=== PATIENT | female | born 1945 | race Caucasian/White ===

== ENCOUNTER → 2020-08-14 09:52 | Outpatient (BNVA) | payer MEDICARE, SELFPAY | PROVIDERS: PCP Internal Medicine; Referring Provider Internal Medicine; Visit Provider Physician Assistant | DX: Z87.19 Personal history of other diseases of the digestive system (principal) | CPT/HCPCS: 99212 ==

== ENCOUNTER → 2020-11-29 13:45 | Outpatient (BNVA) | payer MEDICARE, SELFPAY | PROVIDERS: PCP Internal Medicine; Visit Provider Physician Assistant | DX: Z76.89 Persons encountering health services in other specified circumstances (principal) | CPT/HCPCS: Q3014 ==

== ENCOUNTER 2021-02-11 10:02 | Outpatient (REF) | payer MEDICARE, SELFPAY ==
[2021-02-11 13:07] LABS: MANUAL DIFF FLAG NO
[2021-02-11 13:21] LABS: Glucose Urine UA NEG (NEG); Leukocyte Esterase Urine NEG (NEG); Nitrite Urine NEG (NEG); Urine Blood NEG (NEG); Urine Ketones NEG (NEG); Urine Protein NEG (NEG-TRACE)
[2021-02-11 13:23] LABS: Appearance Urine CLEAR; Color Urine STRAW
[2021-02-11 13:23] LABS: Basophils Absolute Auto 0.1 X10*3/uL (0.0-0.2); Basophils Percent Auto 1.2 % (0-2); Eosinophils Absolute Auto 0.2 X10*3/uL (0.0-0.4); Eosinophils Percent Auto 2.8 % (0-4); Hematocrit 40.9 % (37-47); Imm Gran Abs Auto 0.02 X10*3/uL (0.00-0.03); Imm Gran Pct Auto 0.3 % (0.0-0.4); Lymphocytes Absolute Auto 2.4 X10*3/uL (1.2-4.9); Mean Corpuscular HGB Conc 31.8 g/dl (31.0-35.0); Mean Corpuscular Volume 94.2 fL (80-98); Mean Platelet Volume 9.6 fL (9.4-12.3); Monocytes Absolute Auto 0.7 X10*3/uL (0.1-1.2); Monocytes Percent Auto 10.7 % (2-11); Neutrophils Absolute Auto 3.3 X10*3/uL (2.0-8.3); Platelet Count 383 X10*3/uL (160-400); Red Blood Count 4.34 X10*6/uL (4.20-5.50); Red Cell Distribution Width 14.1 % (11.0-16.0); White Blood Count 6.7 X10*3/uL (4.8-10.8)
[2021-02-11 14:12] LABS: Alanine Aminotransferase 21 U/L (0-31); Albumin Level 4.3 g/dL (3.5-5.0); Alkaline Phosphatase 67 U/L (39-117); Anion Gap 12 (12-20); Aspartate Amino Transferase 19 U/L (5-31); Bilirubin Total 0.4 mg/dL (0.0-1.0); Blood Urea Nitrogen 20 mg/dL (9-16); Calcium 9.6 mg/dL (8.4-10.2); Carbon Dioxide 29 mmol/L (22-29); Chloride 103 mmol/L (96-108); Estimated Glomerular Filt Rate > 60; Glucose Random 79 mg/dL (60-115); Potassium 4.1 mmol/L (3.3-5.1); Sodium 140 mmol/L (135-145)
== END 2021-02-11 10:03 | disposition home or self-care (01) ==
LOC: HO.LAB 10:02
PROVIDERS: PCP Internal Medicine; Visit Provider Physician Assistant
DX: R10.9 Unspecified abdominal pain (principal); K63.5 Polyp of colon; R10.11 Right upper quadrant pain; R74.01 Elevation of levels of liver transaminase levels
CPT/HCPCS: 36415; 80053; 81003; 85025; Q3014

== ENCOUNTER 2021-02-18 07:50 | Outpatient (REF) | payer MEDICARE, SELFPAY ==
--- NOTE | ~2021-02-18 | CT_ITS ---
EXAMINATION: CT ABDOMEN AND PELVIS WITH CONTRAST CLINICAL INFORMATION: Abdominal pain COMPARISON: None TECHNIQUE: Multidetector volumetric images were obtained from the superior aspect of the liver through the pubic symphysis following administration 85 mL of Omnipaque 350 intravenous contrast. Sagittal and coronal reformatted images were obtained on the technologist's workstation. Oral contrast: Yes This CT examination was performed using dose optimization techniques as appropriate, variously including the following: *Automated exposure control *Adjustment of mA and/or kV according to patient size (this includes techniques or standardized protocols for targeted exams where dose is matched to indication/reason for exam; i.e. extremities or head) *Use of iterative reconstruction technique DLP: 511 mGy-cm FINDINGS: LUNG BASES: There is a small calcified 3 mm nodule in the left lower lobe axial image 8 series 3 probably representing a calcified granuloma. The lung bases are otherwise clear. LIVER, GALLBLADDER, AND BILIARY TREE: The liver is normal in size, shape, and attenuation. No focal hepatic lesion or biliary ductal dilatation is present. The gallbladder is unremarkable with no evidence of radiopaque gallstones, gallbladder wall thickening, or obvious pericholecystic inflammatory changes. PANCREAS: Unremarkable. SPLEEN: Unremarkable. ADRENAL GLANDS: Unremarkable. KIDNEYS AND URETERS: The kidneys are normal in size, shape, and attenuation. There is question of mild extrarenal pelvises versus UPJ obstructions. There also appear to be bilateral peripelvic cysts. BLADDER: Unremarkable. GASTROINTESTINAL TRACT: There is diverticulosis of the colon. No evidence of diverticulitis is seen. The appendix is not identified with certainty. There are mild inflammatory changes in the fat extending from the distal small bowel toward the right inguinal region for example axial image [id number] series 3 and coronal reconstructed image 33. This measures 1.4 x 2.2 cm in transverse and longitudinal dimension. ABDOMINAL WALL: There is a small umbilical hernia containing fat. There is a small left inguinal hernia containing fat. LYMPH NODES: Normal. VASCULAR: There is evidence of atherosclerotic disease. PELVIC VISCERA: There is a small 1 cm right ovarian cyst. Uterus and left adnexa are unremarkable. OSSEOUS STRUCTURES: There are degenerative changes of the spine and scoliosis. CT/CT abdomen pelvis w con IMPRESSION: Diverticulosis. No evidence of diverticulitis. Appendix not identified with certainty. Small area of some inflammatory change in the fat in the right lower quadrant extending from the distal small bowel to the high right inguinal region of uncertain significance. Clinical correlation recommended. Mild bilateral hydronephrosis and probable bilateral peripelvic cysts. Small 1 cm right ovarian cyst. Question bilateral renal extrarenal pelvises versus UPJ obstructions and probable bilateral peripelvic cysts.
[2021-02-18] MEDS: iohexoL 350 MG/ML 100 ML INFUS..BTL IV (08:50)
== END 2021-02-18 07:51 | disposition home or self-care (01) ==
LOC: HO.CT 07:50
PROVIDERS: PCP Internal Medicine; Visit Provider Physician Assistant
DX: R10.9 Unspecified abdominal pain (principal)
CPT/HCPCS: 74177; Q9967

== ENCOUNTER → 2021-02-20 08:49 | Outpatient (BNVA) | payer MEDICARE, SELFPAY | PROVIDERS: PCP Internal Medicine; Visit Provider Physician Assistant | CPT/HCPCS: Q3014 ==

== ENCOUNTER 2021-03-26 09:48 | Day surgery (SDC) | payer MEDICARE, SELFPAY ==
[2021-03-21 15:59] VITALS: BMI 31.2
--- NOTE | 2021-03-22 12:29 | P.CONAN_ITS ---
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 - resolved per pt, off O2 RI 10/2019 with LATOSHA - plavix d/c'd 11/2020, stable for yearly cardiac f/u PMFSH Active Problems Active Problems: All Active Problems (Updated 03/22/21 @ 10:21 by Sharita Mendosa) Abdominal pain (Acute) Colon polyps (Acute) Past Medical History Medical History Asthma Colon polyps Coronary arteriosclerosis COVID-19 COVID-19 vaccine series completed H/O heartburn History of pneumonia HTN (hypertension) Hx of breast cancer Hx of myocardial infarction SOB (shortness of breath) on exertion Surgical History Surgical History H/O colonoscopy H/O heart artery stent History of surgery on left wrist Social History Social History Household Members: Spouse Household Members Other:: lives with - Alcohol intake: current Alcohol intake frequency: does not drink Patient Tobacco Use Status: Former Tobacco user Quit Date: 2003 Use of substances other than those prescribed or required for medical reasons: No Are you DNR?: No Advance Directives: No Advance Directives Information Provided: No Advance Directives on File: No Current occupational status: retired Meds Allergies Allergy/AdvReac Type Severity Reaction Status Date / Time No Known Allergies Allergy Verified 03/26/21 10:29 Home Medications Medication Instructions Recorded Confirmed Last Taken Type aspirin 81 mg tablet,delayed 81 mg PO DAILY 08/14/20 03/21/21 03/25/21 08:00 History release olmesartan 40 1 tab PO DAILY 08/14/20 03/21/21 Unknown History mg-hydrochlorothiazide 25 mg tablet carvedilol 3.125 mg tablet 3.125 mg PO BID 11/29/20 03/21/21 03/26/21 06:00 History montelukast 10 mg tablet 10 mg PO BEDTIME 11/29/20 03/21/21 Unknown History rosuvastatin 10 mg tablet 10 mg PO DAILY 11/29/20 03/21/21 Unknown History fluticasone propion-salmeterol 1 puff PO BID 03/21/21 03/21/21 Unknown History [Nikolas Matiasub] Exam Exam Date and Time: March 22, 2021 1229 Height,Weight and Vital Signs: Height 5 ft Weight 72.575 kg Pertinent Lab Results Pertinent Lab Results: Laboratory Tests 02/11/21 02/11/21 12:16 12:16 WBC 6.7 Hgb 13.0 Hct 40.9 Plt Count 383 Sodium 140 Potassium 4.1 Chloride 103 Carbon Dioxide 29 BUN 20 H Creatinine 0.76 Narrative Narrative: ECHO 05/2020 1. LV size is normal 2. LV wall thickness is normal 3. Overall LV systolic function is low normal with EF 50-55% 4. Grade 1 DD with impaired relax. LA pressure is normal 5. No WMA 6. LA is mildly dilated 7. Aortic sclerosis 8. Mild MR 9. No prior Echo for comparison Assessment and Plan Assessment Anesthesia Assessment: Chart Reviewed Documented by User: Teressa Todd 03/26/21 12:12 [facility] Past Medical History Medical History Asthma Colon polyps Coronary arteriosclerosis COVID-19 COVID-19 vaccine series completed H/O heartburn History of pneumonia HTN (hypertension) Hx of breast cancer Hx of myocardial infarction SOB (shortness of breath) on exertion Surgical History Surgical History H/O colonoscopy H/O heart artery stent History of surgery on left wrist Social History Social History Household Members: Spouse Household Members Other:: lives with - Alcohol intake: current Alcohol intake frequency: does not drink Patient Tobacco Use Status: Former Tobacco user Quit Date: 2003 Use of substances other than those prescribed or required for medical reasons: No Are you DNR?: No Advance Directives: No Advance Directives Information Provided: No Advance Directives on File: No Current occupational status: retired [employer] Allergies Allergy/AdvReac Type Severity Reaction Status Date / Time No Known Allergies Allergy Verified 03/26/21 10:29 Home Medications Medication Instructions Recorded Confirmed Last Taken Type aspirin 81 mg tablet,delayed 81 mg PO DAILY 08/14/20 03/21/21 03/25/21 08:00 History release olmesartan 40 1 tab PO DAILY 08/14/20 03/21/21 Unknown History mg-hydrochlorothiazide 25 mg tablet carvedilol 3.125 mg tablet 3.125 mg PO BID 11/29/20 03/21/21 03/26/21 06:00 History montelukast 10 mg tablet 10 mg PO BEDTIME 11/29/20 03/21/21 Unknown History rosuvastatin 10 mg tablet 10 mg PO DAILY 11/29/20 03/21/21 Unknown History fluticasone propion-salmeterol 1 puff PO BID 03/21/21 03/21/21 Unknown History [Wixela Inhub] Exam Airway Mallampati Class: II TM Dist: >3cm Neck ROM: Full
[2021-03-26 10:31] VITALS: BP 150/65; PULSE 62; RESP 20; TEMP 36.1; O2SAT 94
[2021-03-26] MEDS: Lactated Ringers 1,000 ML 100 ML IVCONT (10:44)
--- NOTE | 2021-03-26 11:02 | P.OP_ITS ---
Operative Note Operative Note Date of Service: 03/26/21 Narrative: Pre-op diagnosis: Colon cancer screening history of colon polyps, abdominal pain Post-op diagnosis: other (Colon polyps, diverticulosis, hemorrhoids) Procedure: COLONOSCOPY TILL CECUM WITH SNARE POLYPECTOMY, SUBMUCOSAL INJECTION, QIAN INK INJECTION AND HEMOCLIP PLACEMENT Consent: Indications for the procedure and potential complications of bleeding, perforation, reaction to medications and missed diagnosis were discussed with the patient and informed consent was obtained. Instrument: Olympus PCF H 190 L variable stiffness pediatric colonoscope Monitoring: Vital signs and clinical assessment, intermittent blood pressure monitoring, continuous EKG monitoring, Pulse oximetry and Carbon Dioxide monitoring were done throughout the procedure. Colon withdrawl time was 35 minutes. Procedure: The patient was placed in the left lateral decubitis position and pre-procedure medications were administered. After a digital rectal examination of the ano-rectum, the video colonoscope was inserted into the rectum and advanced through the colon to the cecum. The colonoscope was slowly withdrawn in a retrograde panoramic fashion and the colon mucosa was carefully examined including a retroflexed view of the rectum. Findings and interventions are described below. Procedure Difficulty: Without difficulty Findings: Terminal Ileum: Not evaluated Cecum: A subcentimeter flat polyp raised with 3 cc of for Orise solution and removed with a hot snare. Polypectomy site was closed with the hemoclip Ascending Colon: A 12-15 mm sessile polyp removed with a hot snare Transverse Colon: A 1.5 to 2 cms flat polyp removed piece meal with the stiff snare and polypectomy site marked by Qian ink. Moderate diverticulosis Descending Colon: Moderate diverticulosis Sigmoid Colon: Two 10-15 mm last polyps removed with a hot snare. Moderate diverticulosis Rectum: Normal Ano-rectum: Small internal hemorrhoids Colon preparation: Good Impression and Post Procedure Diagnosis: Colonoscopy Findings: Five medium to large sized polyps removed Moderate diverticulosis seen in the left and transverse colon Small hemorrhoids on retroflexed exam. Plan: Await pathology results Patient has an appointment on []in the GI Clinic with [ABDULAZIZ Medrano] [Cristal Rubio NP] [Maci Guerrero, CHAD-DELL] [Leni Castro M.D.]. Repeat Colonoscopy interval based on path results - in 3-5 years if polyps are adenomatous and 10 years if polyps are hyperplastic. Above findings were reviewed with the patient and [colon polyps] and [diverticulosis] handouts were given in the discharge area Surgeon: Leni Castro MD Anesthesia: MAC (Dr Todd) Was an [employer] used for this Procedure?: Yes [employer]: Bean Sanabria Estimated blood loss (mL): 0 Pathology: other (A- CECAL POLYP O-RISE USED. B- ASCENDING COLON POLYP C- POLYP AT 60CM D- SIGMOID POLYPS) Condition: stable Disposition: PACU
--- NOTE | 2021-03-26 11:02 | MHC.SHP ---
Pre-Procedural Eval Section A The patient is an INPATIENT: No The History & Physical has been completed within 30 days and I have reviewed it.: No Section B Chief Complaint: Colon Polyps Details of Present Illness: Colon cancer screening, history of colon polyps, lower abdominal pain Relevant Social History: None Present Medications: see Short Stay Collaborative assessment Medical History: Significant History (Colon polyps COVID-19 Heart attack) History of Previous Operations: Relevant previous surgery/procedure and date(s) (History of colonoscopy) Allergies: Allergies Allergy/AdvReac Type Severity Reaction Status Date / Time No Known Allergies Allergy Verified 03/26/21 10:29 Review of Systems Sugical H&P ROS: Negative: Constitution, Cardiovascular and Respiratory and Yes, Specify: Gastrointestinal (lower abd pain, constipation) Exam Surgical H&P Exam: Normal: Heart, Normal: Lungs, Normal: Extremities and Normal: Abdomen Plan Diagnosis/Plan: Unchanged I have reviewed the history and physical and performed a pertinent physical examination on my patient. No changes have occurred unless specified.
[2021-03-26 12:55] VITALS: BP 114/49; PULSE 54; RESP 16; TEMP 37; O2SAT 96
[2021-03-26 13:10] VITALS: BP 167/50; PULSE 53; RESP 17; TEMP 37; O2SAT 97
== END 2021-03-26 13:38 | disposition home or self-care (01) ==
PROVIDERS: PCP Internal Medicine; Visit Provider Internal Medicine Gastroenterology
PROC: 0DJD8ZZ Inspection of Lower Intestinal Tract, Via Natural or Artificial Opening Endoscopic (ICD-10-PCS; CPT 45378; principal; 2021-03-26 11:00)
DX: Z12.11 Encounter for screening for malignant neoplasm of colon (principal); Z86.010 Personal history of colon polyps; D12.0 Benign neoplasm of cecum; D12.2 Benign neoplasm of ascending colon; D12.4 Benign neoplasm of descending colon; K63.5 Polyp of colon; K57.30 Diverticulosis of large intestine without perforation or abscess without bleeding; K64.8 Other hemorrhoids; I10 Essential (primary) hypertension; I25.2 Old myocardial infarction; J45.909 Unspecified asthma, uncomplicated; Z85.3 Personal history of malignant neoplasm of breast; Z86.16 Personal history of COVID-19; Z87.01 Personal history of pneumonia (recurrent)
CPT/HCPCS: 45385; 45381; 88305

== ENCOUNTER → 2021-04-09 09:17 | Outpatient (BNVA) | payer MEDICARE, SELFPAY | PROVIDERS: PCP Internal Medicine; Visit Provider Physician Assistant | DX: K63.5 Polyp of colon (principal); R10.32 Left lower quadrant pain; I10 Essential (primary) hypertension; Z87.891 Personal history of nicotine dependence | CPT/HCPCS: 99212 ==

== ENCOUNTER 2021-04-18 11:53 | Emergency (ER) | payer MEDICARE, SELFPAY ==
--- NOTE | ~2021-04-18 | CT_ITS ---
EXAMINATION: CT ABDOMEN AND PELVIS WITH CONTRAST CLINICAL INFORMATION: Right lower quadrant pain. Assess for appendicitis. COMPARISON: CT abdomen and pelvis with contrast 02/18/2021. TECHNIQUE: Multidetector volumetric images were obtained from the superior aspect of the liver through the pubic symphysis following administration 85 mL of Omnipaque 350 intravenous contrast. Sagittal and coronal reformatted images were obtained on the technologist's workstation. Oral contrast: No This CT examination was performed using dose optimization techniques as appropriate, variously including the following: *Automated exposure control *Adjustment of mA and/or kV according to patient size (this includes techniques or standardized protocols for targeted exams where dose is matched to indication/reason for exam; i.e. extremities or head) *Use of iterative reconstruction technique DLP: 733 mGy-cm FINDINGS: LUNG BASES: The visualized lung bases are unremarkable. LIVER, GALLBLADDER, AND BILIARY TREE: The liver is normal in size, shape, and attenuation. No focal hepatic lesion or biliary ductal dilatation is present. The gallbladder is unremarkable with no evidence of radiopaque gallstones, gallbladder wall thickening, or obvious pericholecystic inflammatory changes. PANCREAS: Unremarkable. SPLEEN: Unremarkable. ADRENAL GLANDS: Unremarkable. KIDNEYS AND URETERS: The kidneys are normal in size and smooth in contour and enhance symmetrically. There are no visible urinary tract calculi. Again, there is bilateral fullness renal collecting systems with prominent extrarenal pelves. There may be some small parapelvic cysts. There is no hydroureter or obstructing mass. Appearance is stable from prior CT 02/18/2021. BLADDER: Distended urinary bladder. No focal wall thickening, diverticulum, or bladder calculus. GASTROINTESTINAL TRACT: There is no bowel obstruction or inflammatory changes seen in the bowel or mesentery. The appendix is normal. There is no ascites or fluid collection. No pneumatosis or free air. ABDOMINAL WALL: Small fat-containing umbilical hernia under 2 cm. Small fat-containing inguinal hernias, greater on left, 2.7 cm. LYMPH NODES: No lymphadenopathy. VASCULAR: Atherosclerotic calcifications. No abdominal aortic enlargement. PELVIC VISCERA: Stable 1.2 cm cyst right ovary. No pelvic ascites. OSSEOUS STRUCTURES: Degenerative changes lower thoracic and mid to lower lumbar spine. No acute bony abnormality. CT/CT abdomen pelvis w con IMPRESSION: 1. No inflammatory changes in bowel or mesentery. Normal appendix. 2. Fullness bilateral renal collecting system and extrarenal pelvis, stable from prior CT 02/18/2021. No urinary tract calculi or perinephric stranding. Finding could related to distended bladder as well as mild bilateral chronic UPJ obstruction. KUB at this time may be considered to allow for assessment of excretion of CT intravenous contrast. 3. Small stable fat-containing umbilical and fat-containing inguinal hernias.
--- NOTE | ~2021-04-18 | XR_ITS ---
EXAMINATION: XR ABDOMEN KUB CLINICAL INDICATION: Abnormal CT with bilateral renal collecting system fullness COMPARISON: CT of same day TECHNIQUE: AP view of the abdomen. FINDINGS: No dilated loops of large or small bowel are evident. There is multilevel degenerative disc disease seen within the lumbar spine. Hip joint spaces maintained. No acute fracture or diastases the pelvis. Sacroiliac joints unremarkable. Contrast is noted within the urinary bladder and renal collecting systems. No definite hydronephrosis identified. No columnization of the ureters is seen. Psoas margins are intact. XR/XR KUB IMPRESSION: No specific findings to suggest obstructive uropathy.
[2021-04-18 12:00] VITALS: BP 159/88; PULSE 70; RESP 16; TEMP 35.9; O2SAT 98; BMI 31.2
--- NOTE | 2021-04-18 12:25 | ED_ITS ---
HPI - Abdominal Pain General Chief Complaint: Abdominal Pain Stated Complaint: Possible hernia on right side Time Seen by Provider: 04/18/21 12:12 Source: patient Mode of arrival: ambulatory Limitations: no limitations History of Present Illness HPI narrative: 75 yo female asthma, gerd, HTN, breast cancer s/p left l umpectomy, OK, colon polyps here with complaints acute on chronic right sided abdominal x several hours. patient tells me she has a history of right lower abdominal pain for more than 1 year has been seen by several different specialists. They have been unable to determine the cause of her pain. She had a recent colonoscopy on March 26 which showed several adenomas but otherwise unremarkable. She had a CT scan February 18 which was unremarkable. She has intermittent episodes of pain which can last several minutes to up to 6 hours. They are not associated with any nausea, vomiting, diarrhea, fevers, chills, urinary symptoms. Today she was walking and lifted object and felt pain in her right lower abdomen and has had persistent pain since then. No radiation of pain. Last BM this morning and normal. Related Data Home Medications Medication Instructions Recorded Confirmed aspirin 81 mg tablet,delayed 81 mg PO DAILY 08/14/20 03/21/21 release olmesartan 40 1 tab PO DAILY 08/14/20 03/21/21 mg-hydrochlorothiazide 25 mg tablet carvedilol 3.125 mg tablet 3.125 mg PO BID 11/29/20 03/21/21 montelukast 10 mg tablet 10 mg PO BEDTIME 11/29/20 03/21/21 rosuvastatin 10 mg tablet 10 mg PO DAILY 11/29/20 03/21/21 fluticasone propion-salmeterol 1 puff PO BID 03/21/21 03/21/21 [Nikolas Cordova] Previous Rx's Medication Instructions Recorded methylcellulose (laxative) 500 mg 500 mg PO BID #60 tab 04/09/21 tablet Allergies Allergy/AdvReac Type Severity Reaction Status Date / Time No Known Allergies Allergy Verified 04/18/21 12:00 Review of Systems Review of Systems Yes all other systems are reviewed and are negative Constitutional: Reports no additional constitutional complaints, Denies body ache(s), Denies chills, Denies fever(s), Denies headache(s) and Denies weakness Eyes: Reports no additional eye complaints and Denies change in vision Reports system reviewed and no additional complaints, except as documented, Denies dizziness, Denies headache(s), Denies nasal congestion, Denies nasal discharge and Denies neck pain Cardiovascular: Reports no additional cardiovascular complaints, Denies chest pain, Denies leg edema and Denies dyspnea Respiratory: Reports no additional respiratory complaints, Denies cough and Denies dyspnea Gastrointestinal: Reports no additional gastrointestinal complaints, Reports abdominal pain, Denies diarrhea, Denies nausea and Denies vomiting Genitourinary: Reports no additional female genitourinary complaints and Denies urinary incontinence Musculoskeletal: Reports no additional musculoskeletal complaints, Denies back pain, Denies arthralgias, Denies joint swelling, Denies neck pain, Denies numbness and Denies tingling Skin/Breast: Reports system reviewed and no additional complaints, except as docu and Denies rash Reports system reviewed and no additional complaints, except as documented, Denies Abnormal speech present, Denies dizziness, Denies headache(s), Denies numbness, Denies tingling and Denies weakness Physical Exam Vital Signs: Vital Signs: Last Vital Signs Temp 98.4 F 04/18/21 16:00 Pulse 52 04/18/21 16:00 Resp 16 04/18/21 16:00 BP 157/58 H 04/18/21 16:00 Pulse Ox 97 04/18/21 16:00 Body Mass Index 31.2 Const: General: cooperative, healthy appearing, comfortable and no acute distress Orientation/consciousness: patient oriented x3 Limitations: no limitations HENMT: Head: Yes normal to inspection Ears: hearing grossly normal bilaterally General nose exam: Normal external nose present Face and sinus: Yes normal facial exam Mouth: Normal oral and palatal mucosa present Throat: Yes posterior oropharynx normal Eyes: General: appearance normal, both eyes and all related structures Pupils: Equal, round and reactive pupils present Neck: Neck: Yes normal visual inspection Chest: Chest palpation & inspection: normal inspection of the chest Resp: Effort & Inspection: normal respiratory effort Auscultation: clear to auscultation bilaterally Cardio: Rate: regular rate Rhythm: regular rhythm Peripheral pulses: Peripheral pulses 2+ throughout GI: Inspection: Yes normal to inspection Palpation (GI): Soft to palpation, Tenderness to palpation present (GI) (RLQ) with rebound tenderness and Guarding due to palpation present (GI) Auscultation: normal bowel sounds Back/Spine/Pelvis: Thoracic/Lumbar Spine: thoracic and lumbar spine normal to inspection Skin: General skin exam: no rashes or lesions noted Neuro: General: patient oriented x3, no focal motor deficits and normal sensation to monofilament Cranial nerves: Yes Equal, round and reactive pupils present Cognition (Neuro): normal cognition Speech: No Abnormal speech present Gait exam (Neuro): Normal gait present Motor exam (neuro): 5/5 motor strength present throughout Extrem: General: Yes normal to inspection, Yes no pedal edema and Yes no calf tenderness Course Course Course Narrative: 75 yo female here with acute on chronic right lower abdominal pain x 1 hr with no other associated symptoms. On exam mod tenderness with rebound/guarding. Will check labs, UA, CT A/P, provide analgesia. 1445- labs unremarkable. Urine is still pending. CT shows fullness the bilateral renal collecting system an extrarenal pelvis. Stable from prior CT 02/18/2021. No UTI or perinephric stranding. Could be related to distended bladder as well as mild bilateral chronic UPJ obstruction. Will check KUB. 1715- KUB not consistent with obstructive uropathy. Patient is feeling improved and so we will discharge her home and have her follow-up with her s pecialist as well as Urology. She was provided with a copy of the report. Reviewed worrisome signs and symptoms of when to return to the emergency department. Comfortable discharge home. 1730- I did discuss the patient with Dr. Puri and he agrees with urology follow-up. MDM - Abdominal Pain Differential Diagnosis Differential diagnosis: Likely acute appendicitis, bowel perforation, diverticulitis and gastroenteritis Medical Records Attestation: I reviewed the patient's medical records. Lab Data Attestation: I reviewed the patient's lab results. Result diagrams: 04/18/21 12:37 04/18/21 12:37 Labs: Lab Results 04/18/21 04/18/21 04/18/21 Range/Units 12:37 12:37 12:37 WBC 7.1 (4.8-10.8) X10*3/uL RBC 4.28 (4.20-5.50) X10*6/uL Hgb 13.0 (12.0-16.0) g/dl Hct 39.6 (37-47) % MCV 92.5 (80-98) fL MCH 30.4 (27.0-33.0) pg MCHC 32.8 (31.0-35.0) g/dl RDW 13.2 (11.0-16.0) % Plt Count 354 (160-400) X10*3/uL MPV 9.5 (9.4-12.3) fL Immature Gran % (Auto) 0.3 (0.0-0.4) % Neut % (Auto) 47.5 (45-73) % Lymph % (Auto) 36.6 (20-40) % [place] % (Auto) 11.5 H (2-11) % Eos % (Auto) 3.3 (0-4) % Baso % (Auto) 0.8 (0-2) % Lymph # (Auto) 2.6 (1.2-4.9) X10*3/uL [place] # (Auto) 0.8 (0.1-1.2) X10*3/uL Eos # (Auto) 0.2 (0.0-0.4) X10*3/uL Baso # (Auto) 0.1 (0.0-0.2) X10*3/uL Abs Immat Gran (auto) 0.02 (0.00-0.03) X10*3/uL Absolute Neuts (auto) 3.4 (2.0-8.3) X10*3/uL Absolute Nucleated RBC 0.000 (0.0-0.012) X10*3/uL Nucleated RBC % (auto) 0.0 (0.0-0.2) /100WBC Sodium 140 (135-145) mmol/L Potassium 3.9 (3.3-5.1) mmol/L Chloride 103 (96-108) mmol/L Carbon Dioxide 28 (22-29) mmol/L Anion Gap 13 (12-20) BUN 23 H (9-16) mg/dL Creatinine 0.79 (0.5-1.4) mg/dL Estim Creat Clear Calc 55.5 Estimated GFR > 60 Random Glucose 90 (60-115) mg/dL Lactic Acid 0.7 (0.5-2.0) mmol/L Calcium 9.7 (8.4-10.2) mg/dL Total Bilirubin 0.5 (0.0-1.0) mg/dL Direct Bilirubin 0.2 (0.0-0.5) mg/dL AST 20 (5-31) U/L ALT 19 (0-31) U/L Alkaline Phosphatase 65 (39-117) U/L Total Protein 7.2 (6.5-8.0) g/dL Albumin 4.2 (3.5-5.0) g/dL Urine Color Urine Appearance Urine pH (5.0-8.0) Ur Specific [place] (1.005-1.025) Urine Protein (NEG-TRACE) MG/DL Urine Glucose (UA) (NEG) MG/DL Urine Ketones (NEG) MG/DL Urine Blood (NEG) Urine Nitrite (NEG) Ur Leukocyte Esterase (NEG) Urine RBC (0) /HPF Urine WBC (0-4) /HPF Ur Squamous Epith Cells /LPF Urine Bacteria /LPF 04/18/21 Range/Units 15:10 WBC (4.8-10.8) X10*3/uL RBC (4.20-5.50) X10*6/uL Hgb (12.0-16.0) g/dl Hct (37-47) % MCV (80-98) fL MCH (27.0-33.0) pg MCHC (31.0-35.0) g/dl RDW (11.0-16.0) % Plt Count (160-400) X10*3/uL MPV (9.4-12.3) fL Immature Gran % (Auto) (0.0-0.4) % Neut % (Auto) (45-73) % Lymph % (Auto) (20-40) % [place] % (Auto) (2-11) % Eos % (Auto) (0-4) % Baso % (Auto) (0-2) % Lymph # (Auto) (1.2-4.9) X10*3/uL [place] # (Auto) (0.1-1.2) X10*3/uL Eos # (Auto) (0.0-0.4) X10*3/uL Baso # (Auto) (0.0-0.2) X10*3/uL Abs Immat Gran (auto) (0.00-0.03) X10*3/uL Absolute Neuts (auto) (2.0-8.3) X10*3/uL Absolute Nucleated RBC (0.0-0.012) X10*3/uL Nucleated RBC % (auto) (0.0-0.2) /100WBC Sodium (135-145) mmol/L Potassium (3.3-5.1) mmol/L Chloride (96-108) mmol/L Carbon Dioxide (22-29) mmol/L Anion Gap (12-20) BUN (9-16) mg/dL Creatinine (0.5-1.4) mg/dL Estim Creat Clear Calc Estimated GFR Random Glucose (60-115) mg/dL Lactic Acid (0.5-2.0) mmol/L Calcium (8.4-10.2) mg/dL Total Bilirubin (0.0-1.0) mg/dL Direct Bilirubin (0.0-0.5) mg/dL AST (5-31) U/L ALT (0-31) U/L Alkaline Phosphatase (39-117) U/L Total Protein (6.5-8.0) g/dL Albumin (3.5-5.0) g/dL Urine Color YELLOW Urine Appearance CLEAR Urine pH 5.5 (5.0-8.0) Ur Specific [place] <= 1.005 (1.005-1.025) Urine Protein NEG (NEG-TRACE) MG/DL Urine Glucose (UA) NEG (NEG) MG/DL Urine Ketones NEG (NEG) MG/DL Urine Blood TRACE (NEG) Urine Nitrite NEG (NEG) Ur Leukocyte Esterase NEG (NEG) Urine RBC 1-4 (0) /HPF Urine WBC 1-4 (0-4) /HPF Ur Squamous Epith Cells TRACE /LPF Urine Bacteria NONE /LPF Imaging Data CT scan - abdomen: Attestation: I personally reviewed and interpreted this imaging study as follows: Radiologist's impression: IMPRESSION: 1. No inflammatory changes in bowel or mesentery. Normal appendix. 2. Fullness bilateral renal collecting system and extrarenal pelvis, stable from prior CT 02/18/2021. No urinary tract calculi or perinephric stranding. Finding could related to distended bladder as well as mild bilateral chronic UPJ obstruction. KUB at this time may be considered to allow for assessment of excretion of CT intravenous contrast. 3. Small stable fat-containing umbilical and fat-containing inguinal hernias. kub xray: Attestation: I personally reviewed and interpreted this imaging study as follows: Radiologist's impression: [address] [id number] ReportSigned Patient: Ana Maria Bingham EMR#: [id number]: 6Acct:[id number]/Sex: 75 / FADM Date: 04/18/21Loc: HO.EDAttending Dr: Ordering Physician: KHANG ARITA NP Date of Service: 04/18/21 Procedure(s): XR KUB Accession Number(s): [id number] cc: KHANG ARITA NP~ EXAMINATION: XR ABDOMEN KUB CLINICAL INDICATION: Abnormal CT with bilateral renal collecting system fullness COMPARISON: CT of same day TECHNIQUE: AP view of the abdomen. FINDINGS: No dilated loops of large or small bowel are evident. There is multilevel degenerative disc disease seen within the lumbar spine. Hip joint spaces maintained. No acute fracture or diastases the pelvis. Sacroiliac joints unremarkable. Contrast is noted within the urinary bladder and renal collecting systems. No definite hydronephrosis identified. No columnization of the ureters is seen. Psoas margins are intact. XR/XR KUB IMPRESSION: No specific findings to suggest obstructive uropathy. Discharge Plan Discharge Clinical Impression: Abdominal pain Patient Disposition: Home, Self-Care Instructions: Abdominal Pain (ED) Additional Instructions: Call Dr Puri to follow up in the office. Tell the office you were seen in the ER and had an abnormal CT scan. continue to follow-up with your legal support specialist Prescriptions: No Action fluticasone propion-salmeterol [Wixela Inhub] 250-50 mcg/dose blister with device 1 puff PO BID RF: 0 rosuvastatin 10 mg tablet 10 mg PO DAILY RF: 0 carvedilol 3.125 mg tablet 3.125 mg PO BID RF: 0 montelukast 10 mg tablet 10 mg PO BEDTIME RF: 0 aspirin 81 mg tablet,delayed release (DR/EC) 81 mg PO DAILY RF: 0 olmesartan-hydrochlorothiazide 40-25 mg tablet 1 tab PO DAILY RF: 0 Citrucel 500 mg tablet 500 mg PO BID Qty: 60 RF: 5 Referrals: Luis Puri MD [Physician] - 2 days Interventions: ED Discharge Assessment Last Done: 04/18/21 17:28 Discharge Date/Time: 04/18/21 17:28 [facility] Past Medical History Attestation statement: The following information was validated with the patient. Source: old records reviewed and nursing notes reviewed Medical History Asthma Colon polyps Coronary arteriosclerosis COVID-19 COVID-19 vaccine series completed H/O heartburn History of pneumonia HTN (hypertension) Hx of breast cancer Hx of myocardial infarction SOB (shortness of breath) on exertion Surgical History H/O colonoscopy H/O heart artery stent History of surgery on left wrist Social History Social History Household Members: Spouse Household Members Other:: lives with - Alcohol intake: current Alcohol intake frequency: a few times a week Alcohol type: wine Patient Tobacco Use Status: Former Tobacco user Quit Date: 2003 Use of substances other than those prescribed or required for medical reasons: No Advance Directives: No Advance Directives Information Provided: No Current occupational status: retired
[2021-04-18] MEDS: Morphine Sulfate 4 MG/ML CARTRIDGE IVPUSH (12:41)
[2021-04-18 12:42] LABS: MANUAL DIFF FLAG NO
[2021-04-18 12:46] LABS: Basophils Absolute Auto 0.1 X10*3/uL (0.0-0.2); Basophils Percent Auto 0.8 % (0-2); Eosinophils Absolute Auto 0.2 X10*3/uL (0.0-0.4); Eosinophils Percent Auto 3.3 % (0-4); Hematocrit 39.6 % (37-47); Imm Gran Abs Auto 0.02 X10*3/uL (0.00-0.03); Imm Gran Pct Auto 0.3 % (0.0-0.4); Lymphocytes Absolute Auto 2.6 X10*3/uL (1.2-4.9); Lymphocytes Percent Auto 36.6 % (20-40); Mean Corpuscular HGB Conc 32.8 g/dl (31.0-35.0); Mean Corpuscular Hemoglobin 30.4 pg (27.0-33.0); Mean Corpuscular Volume 92.5 fL (80-98); Mean Platelet Volume 9.5 fL (9.4-12.3); Monocytes Absolute Auto 0.8 X10*3/uL (0.1-1.2); Monocytes Percent Auto 11.5 % (2-11); Neutrophils Absolute Auto 3.4 X10*3/uL (2.0-8.3); Neutrophils Percent Auto 47.5 % (45-73); Platelet Count 354 X10*3/uL (160-400); Red Blood Count 4.28 X10*6/uL (4.20-5.50); Red Cell Distribution Width 13.2 % (11.0-16.0); White Blood Count 7.1 X10*3/uL (4.8-10.8)
[2021-04-18 12:48] VITALS: BP 174/67; PULSE 64; RESP 18; O2SAT 98
[2021-04-18 13:10] LABS: Lactic Acid 0.7 mmol/L (0.5-2.0)
[2021-04-18 13:14] LABS: Alanine Aminotransferase 19 U/L (0-31); Albumin Level 4.2 g/dL (3.5-5.0); Alkaline Phosphatase 65 U/L (39-117); Anion Gap 13 (12-20); Aspartate Amino Transferase 20 U/L (5-31); Bilirubin Direct 0.2 mg/dL (0.0-0.5); Bilirubin Total 0.5 mg/dL (0.0-1.0); Blood Urea Nitrogen 23 mg/dL (9-16); Calcium 9.7 mg/dL (8.4-10.2); Carbon Dioxide 28 mmol/L (22-29); Chloride 103 mmol/L (96-108); Creatinine Clr Calc Pharmacy 55.5; Estimated Glomerular Filt Rate > 60; Glucose Random 90 mg/dL (60-115); Potassium 3.9 mmol/L (3.3-5.1); Sodium 140 mmol/L (135-145); Total Protein 7.2 g/dL (6.5-8.0)
[2021-04-18 15:11] VITALS: BP 154/45; PULSE 53; RESP 16; O2SAT 98
[2021-04-18 15:19] LABS: Glucose Urine UA NEG (NEG); Leukocyte Esterase Urine NEG (NEG); Nitrite Urine NEG (NEG); PH 5.5 (5.0-8.0); Specific Gravity - Urine <= 1.005 (1.005-1.025); Urine Blood TRACE (NEG); Urine Ketones NEG (NEG); Urine Protein NEG (NEG-TRACE)
[2021-04-18 15:33] LABS: Appearance Urine CLEAR; Color Urine YELLOW
[2021-04-18 15:40] LABS: Squamous Epithelial Cell Urine TRACE /LPF
[2021-04-18 16:00] VITALS: BP 157/58; PULSE 52; RESP 16; TEMP 36.9; O2SAT 97
== END 2021-04-18 17:28 | disposition home or self-care (01) ==
PROVIDERS: Nurse Practitioner Family; Emergency Provider Emergency Medicine; PCP Internal Medicine
DX: R10.9 Unspecified abdominal pain (principal); I10 Essential (primary) hypertension; J45.909 Unspecified asthma, uncomplicated; I25.2 Old myocardial infarction; Z79.82 Long term (current) use of aspirin; Z79.899 Other long term (current) drug therapy
CPT/HCPCS: 36415; 74018; 74177; 80048; 80076; 81001; 83605; 85025; 96374; 99284; J2270

== ENCOUNTER → 2021-04-30 08:27 | Outpatient (BNVA) | payer MEDICARE, SELFPAY | PROVIDERS: PCP Internal Medicine; Visit Provider Physician Assistant | DX: F41.9 Anxiety disorder, unspecified (principal); R10.9 Unspecified abdominal pain | CPT/HCPCS: 99212 ==

== ENCOUNTER 2022-05-26 12:01 | Outpatient (REF) | payer MEDICARE, SELFPAY ==
[2022-05-26 13:23] LABS: MANUAL DIFF FLAG NO
[2022-05-26 13:33] LABS: Basophils Absolute Auto 0.1 X10*3/uL (0.0-0.2); Basophils Percent Auto 1.1 % (0-2); Eosinophils Absolute Auto 0.2 X10*3/uL (0.0-0.4); Hematocrit 40.2 % (37.0-47.0); Hemoglobin 13.1 g/dl (12.0-16.0); Imm Gran Abs Auto 0.01 X10*3/uL (0.00-0.03); Imm Gran Pct Auto 0.2 % (0.0-0.4); Lymphocytes Absolute Auto 2.1 X10*3/uL (1.2-4.9); Lymphocytes Percent Auto 32.7 % (20-40); Mean Corpuscular HGB Conc 32.6 g/dl (31.0-35.0); Mean Platelet Volume 9.9 fL (9.4-12.3); Monocytes Absolute Auto 0.7 X10*3/uL (0.1-1.2); Neutrophils Absolute Auto 3.3 x10*3/uL (2.0-8.3); Platelet Count 382 X10*3/uL (160-400); Red Blood Count 4.37 X10*6/uL (4.20-5.50); Red Cell Distribution Width 12.9 % (11.0-16.0); White Blood Count 6.3 X10*3/uL (4.8-10.8)
[2022-05-26 14:08] LABS: Alanine Aminotransferase 20 U/L (0-31); Albumin Level 4.1 g/dL (3.5-5.0); Alkaline Phosphatase 72 U/L (39-117); Anion Gap 15 (12-20); Aspartate Amino Transferase 21 U/L (5-31); Bilirubin Total 0.4 mg/dL (0.0-1.0); Blood Urea Nitrogen 27 mg/dL (9-16); C Reactive Protein 0.09 mg/dL (< or = 0.50); Calcium 9.3 mg/dL (8.4-10.2); Carbon Dioxide 28 mmol/L (22-29); Chloride 104 mmol/L (96-108); Estimated Glomerular Filt Rate > 60; Glucose Random 90 mg/dL (60-115); Iron 102 mcg/dL (30-160); Percent Iron Saturation 27 % (15-50); Potassium 4.3 mmol/L (3.3-5.1); Sodium 143 mmol/L (135-145); Total Iron Binding Capacity 378 mcg/dL (228-428); Unsaturated Iron Binding 276 ug/dL
[2022-05-26 14:20] LABS: Erythrocyte Sedimentation Rate 12 MM/HR (0-20)
[2022-05-26 14:31] LABS: Ferritin 121 ng/mL (10-250); Free T4 (Free Thyroxine) 1.03 ng/dL (0.71-1.85); Thyroid Stimulating Hormone 1.56 uIU/mL (0.32-4.0)
== END 2022-05-26 12:02 | disposition home or self-care (01) ==
LOC: HO.MANLDS 12:01
PROVIDERS: Visit Provider Physician Assistant
DX: R42 Dizziness and giddiness (principal); R55 Syncope and collapse
CPT/HCPCS: 36415; 80053; 82728; 83540; 84439; 84443; 85025; 85652; 86140

== ENCOUNTER 2023-03-11 09:53 | Outpatient (REF) | payer MEDICARE, SELFPAY | END 2023-03-11 09:54 | disposition home or self-care (01) | LOC: HO.MANLDS 09:53 | PROVIDERS: Visit Provider Internal Medicine | DX: M10.9 Gout, unspecified (principal) | CPT/HCPCS: 36415; 84550 ==

== ENCOUNTER 2023-04-17 10:01 | Outpatient (REF) | payer MEDICARE, SELFPAY | END 2023-04-17 10:02 | disposition home or self-care (01) | LOC: HO.MANLDS 10:01 | PROVIDERS: Visit Provider Internal Medicine | DX: M10.9 Gout, unspecified (principal) | CPT/HCPCS: 36415; 84550 ==

== ENCOUNTER 2023-04-22 08:11 | Outpatient (AMB) | payer MEDICARE, SELFPAY ==
--- NOTE | 2023-04-22 08:23 | A.OFFVIS_ITS ---
Intake Vital Signs 04/22/23 08:26 Height 5 ft Weight 153 lb BMI 29.9 BP 151/69 H Blood Pressure Location Lt brachial Position Sitting Pulse 74 Intake Visit Reasons: 2 years pre colonoscopy screening Intake Note: Patient 2 years follow up for pre colonoscopy screening. Patient cc: abdominal pain on and off, acid reflex come and go, and constipation. Re Examiner Required: No Accompanied by: Self / Same As Patient Allergies No Known Allergies Allergy (Verified 04/22/23 08:21) Medication List - Last Reconciled 04/22/23 by Estrella Lucas PA-C allopurinol 100 mg PO DAILY aspirin 81 mg PO DAILY fluticasone propion-salmeterol 250-50 mcg/dose (Wixela Inhub) 1 puff PO BID montelukast 10 mg PO BEDTIME olmesartan-hydrochlorothiazide 40-25 mg 1 tab PO DAILY rosuvastatin 10 mg PO DAILY HPI HPI Comments History of Present Illness Details A77 y/o feamle with history multiple colon adenomas- due for 2 year repeat- Bowels seem to be a bit irregular - no abdominal pain- Appetite is good -he exercises walks 2 miles a day with her No cardiac issues- follows with cardiology -annually-appointment next month No N/V/D abdominal pain PFSH Medical History Asthma Colon polyps Coronary arteriosclerosis COVID-19 COVID-19 vaccine series completed H/O heartburn History of pneumonia HTN (hypertension) Hx of breast cancer Hx of myocardial infarction SOB (shortness of breath) on exertion Surgical History H/O colonoscopy H/O heart artery stent History of surgery on left wrist Social History Household Members: Spouse Household Members Other:: lives with - Alcohol intake: current Alcohol intake frequency: a few times a week Alcohol type: wine Patient Tobacco Use Status: Former Tobacco user Quit Date: 2003 Current occupational status: retired Review of Systems Const All systems reviewed & are unremarkable except as noted in HPI and below Card Denies chest pain and Denies dyspnea Resp Denies dyspnea GI Denies abdominal pain, Denies heartburn, Denies nausea and Denies vomiting Physical Exam Vital Signs: Last Vital Signs Pulse 74 04/22/23 08:26 BP 151/69 H 04/22/23 08:26 BMI result Body Mass Index 29.9 Const General: cooperative, healthy appearing and comfortable Orientation/consciousness: patient oriented x3 Limitations: no limitations Eyes Sclerae: sclerae normal Resp Effort & Inspection: normal respiratory effort and able to speak in complete sentences Auscultation: clear to auscultation bilaterally, no rales, no rhonchi and no wheezes Cardio Rate: regular rate Rhythm: regular rhythm Heart sounds: S1 normal heart sound present and S2 normal heart sound present GI Palpation (GI): Soft to palpation and nontender Auscultation: normal bowel sounds Skin General skin exam: no rashes or lesions noted Neuro General: patient oriented x3 Extrem General: Yes full ROM Psych Appearance: grossly normal and well kempt Mental Status: mental status grossly normal Speech and movement: Normal speech and movement present and Clear speech present Affect: normal affect Attitude: cooperative Thought process: Normal thought process present Thought content: Normal thought content present Insight: Good insight present (Psych) Judgement: Good judgement present (Psych) Results Reviewed Results Reviewed: Impression and Post Procedure Diagnosis: Colonoscopy Findings: Five medium to large sized polyps removed Moderate diverticulosis seen in the left and transverse colon Small hemorrhoids on retroflexed exam. Plan: Await pathology results Patient has an appointment on []in the GI Clinic with [ABDULAZIZ Medrano] [Cristal Rubio NP] [Maci Guerrero, [facility]-] [Leni Castro M.D.]. Repeat Colonoscopy interval based on path results - in 3-5 years if polyps are adenomatous and 10 years if polyps are hyperplastic. Above findings were reviewed with the patient and [colon polyps] and [diverticulosis] handouts were given in the discharge area Surgeon: Leni Castro MD Name:Ana Maria El Age/Sex: 75/F Attending: Leni Castro MD : 1945 Submitted by: Leni Castro MD Copies to: KEIRA MARTINO MD MR #: [id number] ? Status: [facility] Collected: 03/26/21 Location: [facility] Received: 03/26/21 Diagnosis A.? Cecum, polypectomy:? Fragments of sessile serrated polyp; no high-grade dysplasia or carcinoma seen. B.? Colon, ascending, polypectomy:? Fragments of tubular adenoma; no high-grade dysplasia or carcinoma seen. C.? Colon, 60 cm, polypectomy:? Fragments of sessile serrated polyp; no high- grade dysplasia or carcinoma seen. D.? Colon, sigmoid, polypectomies:? Hyperplastic mucosal polyps. Clinical History Pre-Op Dx:? Hx of colon polyps Post-Op Dx: Colon polyps, diverticulosis, hemorrhoids, O-RISE used Assessment & Plan Assessment & Plan (1) Colon polyps: Comment: a very pleasant 77-year-old female s/p AK-with personal history of colon polyps - no cardiac issues- follows with Dr. Herron- seeing him next week Code(s): K63.5 - Polyp of colon Plan Colonoscopy- Dr. Castro- [facility]- anesthesia consult MG split Orders: Orders Colonoscopy - GI Use Only Today K63.5 - Polyp of colon Medications: New bisacodyl (Dulcolax (bisacodyl)) Take 4 tablets by mouth at 12:00pm the day before your procedure. 20 mg (4 x 5 mg) PO ONCE PRN 4 tabs 0RF colonoscopy prep 1 day Z12.11 - Encounter for screening for malignant neoplasm of colon polyethylene glycol 3350 (Miralax) Take as directed by mouth the day before your procedure. 238 grams PO ONCE PRN 238 grams 0RF laxative effect 1 day Patient Instructions: Very pleasant 77-year-old female s/p AK-personal history colon polyps follows up for repeat colonoscopy. Follows annually with cardiology Discussed procedure, rare risks, need for escorted due to anesthesia as well as MiraLax Gatorade split prep, literature given. Encouraged to call questions or concerns Appreciate the opportunity assist in care the patient Coding Level of Care Code Est Pt Level 3 (79348) Diagnoses Colon polyps K63.5 Time Spent (min) 30
[2023-04-22 08:26] VITALS: BP 151/69; PULSE 74; BMI 29.9
== END 2023-04-22 08:56 | disposition home or self-care (01) ==
PROVIDERS: PCP Internal Medicine; Visit Provider Physician Assistant
DX: K63.5 Polyp of colon (principal)
CPT/HCPCS: 99213

== ENCOUNTER → 2023-04-22 08:11 | Outpatient (BNVA) | payer MEDICARE, SELFPAY | PROVIDERS: PCP Internal Medicine; Visit Provider Physician Assistant | DX: K63.5 Polyp of colon (principal) | CPT/HCPCS: 99212 ==

== ENCOUNTER 2023-05-19 08:41 | Outpatient (REF) | payer MEDICARE, SELFPAY ==
[2023-05-19 14:32] LABS: Uric Acid 5.8 mg/dL (2.4-5.7)
== END 2023-05-19 08:42 | disposition home or self-care (01) ==
LOC: HO.MANLDS 08:41
PROVIDERS: Visit Provider Internal Medicine
DX: M10.9 Gout, unspecified (principal)
CPT/HCPCS: 36415; 84550

== ENCOUNTER 2023-07-24 07:50 | Outpatient (REF) | payer MEDICARE, SELFPAY ==
[2023-07-24 14:36] LABS: Uric Acid 5.7 mg/dL (2.4-5.7)
== END 2023-07-24 07:51 | disposition home or self-care (01) ==
LOC: HO.MANLDS 07:50
PROVIDERS: Visit Provider Internal Medicine
DX: M10.9 Gout, unspecified (principal)
CPT/HCPCS: 36415; 84550

== ENCOUNTER 2023-09-21 09:12 | Day surgery (SDC) | payer MEDICARE, SELFPAY ==
[2023-09-17 14:35] VITALS: BMI 29.9
--- NOTE | 2023-09-18 09:44 | HO.ANESPROP2 ---
Documented by User: Bridgett Mejia NP 09/18/23 09:48 HPI - Anesthesia Eval Consult details Narrative: 77yo F for Colonoscopy Follows [facility]: CAD with STEMI 2020 s/p stent. Last office visit 05/2023. Stable angina, BP meds adjusted. FORMERLY [facility], [facility]–1983 Active Problems Active Problems: All Active Problems (Updated 09/17/23 @ 14:33 by Collette Zimmer RN) Anxiety (Acute) Abdominal pain (Acute) Colon polyps (Acute) Past Medical History Medical History HTN (hypertension) Coronary arteriosclerosis History of pneumonia Hx of myocardial infarction SOB (shortness of breath) on exertion Asthma H/O heartburn Hx of breast cancer COVID-19 vaccine series completed COVID-19 Colon polyps Surgical History Surgical History History of surgery on left wrist H/O heart artery stent H/O colonoscopy Social History Social History Household Members: Spouse Household Members Other:: lives with - Alcohol intake: current Alcohol intake frequency: a few times a week Alcohol type: wine Patient Tobacco Use Status: Former Tobacco user Quit Date: 2003 Current occupational status: retired Meds Allergies Allergy/AdvReac Type Severity Reaction Status Date / Time No Known Allergies Allergy Verified 04/22/23 08:21 Home Medications Medication Instructions Recorded Confirmed Last Taken Type aspirin 81 mg tablet,delayed 81 mg PO DAILY 08/14/20 09/17/23 03/25/21 08:00 History release montelukast 10 mg tablet 10 mg PO BEDTIME 11/29/20 09/17/23 Unknown History rosuvastatin 10 mg tablet 10 mg PO DAILY 11/29/20 09/17/23 Unknown History fluticasone 250 mcg-salmeterol 50 1 puff PO BID 03/21/21 09/17/23 Unknown History mcg/dose blistr powdr for inhalation (Nikolas Cordova) allopurinol 100 mg tablet 100 mg PO DAILY 04/22/23 09/17/23 Unknown History isosorbide mononitrate 30 mg 30 mg PO DAILY 09/17/23 09/17/23 Unknown History tablet,extended release 24 hr olmesartan 40 mg tablet 40 mg PO DAILY 09/17/23 09/17/23 Unknown History Exam Height,Weight and Vital Signs: Height 5 ft Weight 69.4 kg Assessment and Plan Assessment Anesthesia Assessment: Chart Reviewed Documented by User: Serena Aranda MD 09/21/23 10:27 FORMERLY [facility], [facility] Past Medical History Medical History HTN (hypertension) Coronary arteriosclerosis History of pneumonia Hx of myocardial infarction SOB (shortness of breath) on exertion Asthma H/O heartburn Hx of breast cancer COVID-19 vaccine series completed COVID-19 Colon polyps Surgical History Surgical History History of surgery on left wrist H/O heart artery stent H/O colonoscopy History of Problems with Anesthesia: No Social History Social History Household Members: Spouse Household Members Other:: lives with - Alcohol intake: current Alcohol intake frequency: a few times a week Alcohol type: wine Patient Tobacco Use Status: Former Tobacco user Quit Date: 2003 Current occupational status: retired [employer] Allergies Allergy/AdvReac Type Severity Reaction Status Date / Time No Known Allergies Allergy Verified 04/22/23 08:21 Home Medications Medication Instructions Recorded Confirmed Last Taken Type aspirin 81 mg tablet,delayed 81 mg PO DAILY 08/14/20 09/17/23 03/25/21 08:00 History release montelukast 10 mg tablet 10 mg PO BEDTIME 11/29/20 09/17/23 Unknown History rosuvastatin 10 mg tablet 10 mg PO DAILY 11/29/20 09/17/23 Unknown History fluticasone 250 mcg-salmeterol 50 1 puff PO BID 03/21/21 09/17/23 Unknown History mcg/dose blistr powdr for inhalation (Wixela Inhub) allopurinol 100 mg tablet 100 mg PO DAILY 04/22/23 09/17/23 Unknown History isosorbide mononitrate 30 mg 30 mg PO DAILY 09/17/23 09/17/23 Unknown History tablet,extended release 24 hr olmesartan 40 mg tablet 40 mg PO DAILY 09/17/23 09/17/23 Unknown History Exam Airway Mallampati Class: II TM Dist: >3cm Neck ROM: Full Loose/Missing/Broken Teeth: No Heart: RRR Lungs: CTA Assessment and Plan Assessment Anesthesia Assessment: Anesthesia Plan Discussed Final Anesthetic Review History of Problems with Anesthesia: No NPO: Yes ASA Class: III Final Preanesthetic Review: Meds/Allgs Chart Reviewed, Consent Obtained/Reviewed and Anes Risks/Benef Reviewed Patient Risk: Intermediate Procedure Risk: Low Anesthetic Plan Anesthetic Plan: MAC: Disposition: Standard PACU
--- NOTE | 2023-09-21 09:29 | P.HPSUR_ITS ---
Pre-Procedural Eval Section A Date of Service: 09/21/23 The patient is an INPATIENT: No The History & Physical has been completed within 30 days and I have reviewed it.: No Section B Chief Complaint: Surveillance for colon polyps Relevant Family History (Specify if Yes): No Relevant Social History: Tobacco Use (Former smoker) Present Medications: see Short Stay Collaborative assessment Medical History: Significant History (Coronary arteriosclerosis COVID-19 COVID- 19 vaccine series completed H/O heartburn History of pneumonia HTN (hypertension) Hx of breast cancer Hx of myocardial infarction) History of Previous Operations: Relevant previous surgery/procedure and date(s) (H/O colonoscopy H/O heart artery stent History of surgery on left wrist) Allergies: Allergies Allergy/AdvReac Type Severity Reaction Status Date / Time No Known Allergies Allergy Verified 04/22/23 08:21 Review of Systems Sugical H&P ROS: Negative: Constitution, Cardiovascular, Respiratory and Gastrointestinal Exam Surgical H&P Exam: Normal: Heart, Normal: Lungs, Normal: Extremities and Normal: Abdomen Plan Diagnosis/Plan: Unchanged I have reviewed the history and physical and performed a pertinent physical examination on my patient. No changes have occurred unless specified. Time Spent With Patient Time: Total time managing care of this patient today ____ minutes.
[2023-09-21 09:42] VITALS: BP 197/86; PULSE 76; RESP 16; TEMP 36.3; O2SAT 99; BMI 29.5
--- NOTE | 2023-09-21 09:47 | W.PM.OPN ---
Operative Note Operative Note Date of Service: 09/21/23 Narrative: COLONOSCOPY TILL CECUM WITH SNARE POLYPECTOMY, SUBMUCOSAL INJECTION AND HEMOCLIP PLACEMENT Pre-op diagnosis: Surveillance for colon polyps Post-op diagnosis:? Colon polyps, diverticulosis, hemorrhoids Endoscopist:? Leni Castro MD Anesthesia:?MAC Consent: Indications for the procedure and potential complications of bleeding, perforation, reaction to medications and missed diagnosis were discussed with the patient and informed consent was obtained. Instrument: Olympus PCF H 190 L variable stiffness pediatric colonoscope Monitoring: Vital signs and clinical assessment, intermittent blood pressure monitoring, continuous EKG monitoring, Pulse oximetry and Carbon Dioxide monitoring were done throughout the procedure. Please see anesthesia flowsheet. Colon withdrawl time was 28 minutes. Procedure: The patient was placed in the left lateral decubitis position and pre-procedure medications were administered. After a digital rectal examination of the ano-rectum, the video colonoscope was inserted into the rectum and advanced through the colon to the cecum. The colonoscope was slowly withdrawn in a retrograde panoramic fashion and the colon mucosa was carefully examined including a retroflexed view of the rectum. Findings and interventions are described below. Procedure Difficulty: Sigmoid colon was narrowed and tortuous (due to severe diverticulosis) from 25-30 cm - this area was navigated with some difficulty Findings: Terminal Ileum: Not evaluated Cecum: Normal Ascending Colon: Two 12-15 mm flat polyps in the mid AC at 60 cms. Polyps were raised with 3 cc of Eleview and removed with a hot snare. Polypectomy sites were closed with 1 hemoclip at each site Transverse Colon: Moderate diverticulosis Descending Colon: Moderate diverticulosis Sigmoid Colon: Two 10-15 mm flat polyps in the sigmoid colon at 50 cms. (one polyp was located at the site of past polypectomy) Polyps were raised with 3 cc of Eleview and removed with a hot snare. Polypectomy sites were closed with 1 hemoclip at each site Severe diverticulosis with luminal narrowing Rectum: Normal Ano-rectum: Moderate internal hemorrhoids and hypertrophied anal papillae Colon preparation: Good after some irrigation Impression and Post Procedure Diagnosis: Colonoscopy Findings: Four medium sized polyps removed Moderate diverticulosis seen in the left and transverse colon Moderate hemorrhoids on retroflexed exam. Plan: Await pathology results Patient has an appointment on 10/07/23 in the GI Clinic with ABDULAZIZ Medrano. Repeat Colonoscopy interval based on path results - in 3 years if polyps are adenomatous and due to a history of adenomatous colon polyps. Above findings were reviewed with the patient and colon polyps handout was given in the discharge area
[2023-09-21] MEDS: Lactated Ringers 1,000 ML 100 ML IVCONT (10:06)
[2023-09-21 10:55] VITALS: BP 157/48; PULSE 58; RESP 18; TEMP 36.2; O2SAT 99
[2023-09-21 11:10] VITALS: BP 170/63; PULSE 55; RESP 18; TEMP 36.4; O2SAT 100
== END 2023-09-21 12:18 | disposition home or self-care (01) ==
PROVIDERS: PCP Internal Medicine; Visit Provider Internal Medicine Gastroenterology
PROC: 0DJD8ZZ Inspection of Lower Intestinal Tract, Via Natural or Artificial Opening Endoscopic (ICD-10-PCS; CPT 45378; principal; 2023-09-21 11:00)
DX: Z12.11 Encounter for screening for malignant neoplasm of colon (principal); D12.2 Benign neoplasm of ascending colon; K57.30 Diverticulosis of large intestine without perforation or abscess without bleeding; K64.8 Other hemorrhoids; K62.89 Other specified diseases of anus and rectum; Z86.010 Personal history of colon polyps; I10 Essential (primary) hypertension; J45.909 Unspecified asthma, uncomplicated; R12 Heartburn; I25.2 Old myocardial infarction; Z95.1 Presence of aortocoronary bypass graft; Z85.3 Personal history of malignant neoplasm of breast; Z87.01 Personal history of pneumonia (recurrent); Z79.82 Long term (current) use of aspirin; Z79.899 Other long term (current) drug therapy; Z87.891 Personal history of nicotine dependence
CPT/HCPCS: 45385; 45381; 88305; J2250; J2704

== ENCOUNTER → 2023-09-21 09:12 | Outpatient (BNV) | payer MEDICARE, SELFPAY | PROVIDERS: PCP Internal Medicine; Visit Provider Internal Medicine Gastroenterology | DX: Z12.11 Encounter for screening for malignant neoplasm of colon (principal); K57.30 Diverticulosis of large intestine without perforation or abscess without bleeding; K64.8 Other hemorrhoids; D12.2 Benign neoplasm of ascending colon; D12.5 Benign neoplasm of sigmoid colon | CPT/HCPCS: 45381; 45385 ==

== ENCOUNTER 2023-10-07 08:50 | Outpatient (AMB) | payer MEDICARE, SELFPAY ==
--- NOTE | 2023-10-07 09:00 | MHC.OFFVIS ---
Intake Vital Signs 10/07/23 09:02 Height 5 ft Weight 149 lb BMI 29.1 BP 163/72 H Blood Pressure Location Lt brachial Position Sitting Pulse 70 Intake Visit Reasons: s/p colon Matthew Intake Note: Patient follow up for Colonoscopy results Patient denies any GI issues. Community Nutrition Educator Required: No Accompanied by: Spouse Allergies No Known Allergies Allergy (Verified 10/07/23 08:59) Medication List - Last Reconciled 10/07/23 by Estrella Lucas PA-C allopurinol 100 mg PO DAILY aspirin 81 mg PO DAILY fluticasone propion-salmeterol 250-50 mcg/dose (Wixela Inhub) 1 puff PO BID isosorbide mononitrate ER 30 mg PO DAILY montelukast 10 mg PO BEDTIME olmesartan 40 mg PO DAILY rosuvastatin 10 mg PO DAILY HPI HPI Comments History of Present Illness Details A 78 y/o female with HTN- here for results colonoscopy- Her BP has been elevating- she has had OROZCO, come and go, she does not have 1 today - no N/V/dizziness, confusion She reports that typically her blood pressure is better at home however reviewed by also plans at time of procedure as well. She had an says procedure was almost canceled due to her hypertension he has been taking she medication past couple years Appetite is good Bowels are normal No GI or general complaints Reviewed procedure report, pathology and recommendation No nausea, vomiting, hematemesis, hematochezia, abdominal pain, headache, dizziness shortness of breath or chest PFSH Medical History (Updated 10/07/23 @ 14:10 by Estrella Lucas PA-C) HTN (hypertension) Coronary arteriosclerosis History of pneumonia Hx of myocardial infarction SOB (shortness of breath) on exertion Asthma H/O heartburn Hx of breast cancer COVID-19 vaccine series completed COVID-19 Colon polyps Surgical History History of surgery on left wrist H/O heart artery stent H/O colonoscopy Social History Household Members: Spouse Household Members Other:: lives with - Alcohol intake: current Alcohol intake frequency: a few times a week Alcohol type: wine Patient Tobacco Use Status: Former Tobacco user Quit Date: 2003 Current occupational status: retired Review of Systems Const Details: All systems reviewed and are negative All systems reviewed & are unremarkable except as noted in HPI and below Card Denies chest pain and Denies rapid heart rate Physical Exam Vital Signs: Last Vital Signs Pulse 70 10/07/23 09:02 BP 163/72 H 10/07/23 09:02 BMI result Body Mass Index 29.1 Const General: cooperative, healthy appearing, comfortable, no acute distress and anxious Orientation/consciousness: patient oriented x3 Limitations: no limitations Resp Auscultation: clear to auscultation bilaterally, no rales, no rhonchi and no wheezes Cardio Rate: regular rate Rhythm: regular rhythm Heart sounds: S1 normal heart sound present and S2 normal heart sound present Skin General skin exam: no rashes or lesions noted Neuro General: patient oriented x3 Extrem General: Yes full ROM Psych Appearance: grossly normal and well kempt Mental Status: mental status grossly normal Speech and movement: Normal speech and movement present and Clear speech present Affect: normal affect and Anxious affect present Attitude: cooperative Thought process: Normal thought process present Thought content: Normal thought content present Insight: Good insight present (Psych) Judgement: Good judgement present (Psych) Results Reviewed Results Reviewed: Findings: Terminal Ileum: Not evaluated Cecum: Normal Ascending Colon: Two 12-15 mm flat polyps in the mid AC at 60 cms. Polyps were raised with 3 cc of Eleview and removed with a hot snare. Polypectomy sites were closed with 1 hemoclip at each site Transverse Colon: Moderate diverticulosis Descending Colon: Moderate diverticulosis Sigmoid Colon: Two 10-15 mm flat polyps in the sigmoid colon at 50 cms. (one polyp was located at the site of past polypectomy) Polyps were raised with 3 cc of Eleview and removed with a hot snare. Polypectomy sites were closed with 1 hemoclip at each site Severe diverticulosis with luminal narrowing Rectum: Normal Ano-rectum: Moderate internal hemorrhoids and hypertrophied anal papillae Colon preparation: Good after some irrigation Impression and Post Procedure Diagnosis: Colonoscopy Findings: Four medium sized polyps removed Moderate diverticulosis seen in the left and transverse colon Moderate hemorrhoids on retroflexed exam. Plan: Await pathology results Patient has an appointment on 10/07/23 in the GI Clinic with ABDULAZIZ Medrano. Repeat Colonoscopy interval based on path results - in 3 years if polyps are adenomatous and due to a history of adenomatous colon polyps. Above findings were reviewed with the patient and colon polyps handout was given in the discharge area leonard: Ana Maria Bingham Age/Sex: 77/F Attending: Leni Castro MD : 1945 Submitted by: Leni Castro MD Copies to: Zachery Perez MD MR #: [id number] Status: [facility] Collected: 09/21/23 Location: [facility] Received: 09/21/23 Diagnosis A. Colon, ascending, polypectomies: Sessile serrated lesions/polyps; negative for cytologic dysplasia. B. Colon, sigmoid, polypectomies: Hyperplastic mucosal polyps. Clinical History Pre-Op Dx: Surveillance of colon polyps Post-Op Dx: Colon polyps, hemorrhoids, diverticulosis Microscopic Description A, B. Microscopic sections reviewed. Material Received A. Polyps ascending colon B. Polyps sigmoid colon Gross Description Parts. Part A: Received in formalin labeled ?polyps ascending colon? are 2 focally methylene blue dye stained and hyperemic and congested mcgovern-pink papular tissue fragments measuring 0.5 and 0.6 cm, submitted in toto in a cassette labeled A. Part B: Received in formalin labeled ?polyps sigmoid colon? are 2 mcgovern-pink and methylene blue dye- stained papular tissue fragments measuring 0.35 and 0.9 cm, respectively. The resected base of the larger papule is inked and the specimen is sectioned and entirely submitted with the smaller tissue fragment, submitted in toto, in a cassette labeled B. CEDS Copies To Zachery Perez MD [address] [place] [address] [id number] Patient: Ana Maria Bingham Age/Sex: 77/F MR#: [id number] Page 1 of 2 Assessment & Plan Assessment & Plan (1) Sessile colonic polyp: Code(s): K63.5 - Polyp of colon Plan: Three year repeat colonoscopy (2) Diverticular disease: Code(s): K57.90 - Diverticulosis of intestine, part unspecified, without perforation or abscess without bleeding Plan: er protocol (3) Hemorrhoids: Code(s): K64.9 - Unspecified hemorrhoids Plan: Avoid straining Plan Have reminder placed for 3 year repeat colonoscopy Patient Instructions: Call PCP today for hypertension-she is agreeable Repeat asymptomatic colonoscopy 3 years Avoid straining Maintain high-fiber diet Diverticulosis/diverticulitis year protocol review Encouraged to call questions or concerns Coding Level of Care Code Est Pt Level 3 (22468) Diagnoses Sessile colonic polyp K63.5 Diverticular disease K57.90 Hemorrhoids K64.9 Time Spent (min) 30 Comment present
[2023-10-07 09:02] VITALS: BP 163/72; PULSE 70; BMI 29.1
== END 2023-10-07 09:56 | disposition home or self-care (01) ==
PROVIDERS: PCP Internal Medicine; Visit Provider Physician Assistant
DX: K63.5 Polyp of colon (principal); K57.90 Diverticulosis of intestine, part unspecified, without perforation or abscess without bleeding; K64.9 Unspecified hemorrhoids
CPT/HCPCS: 99213

== ENCOUNTER → 2023-10-07 08:50 | Outpatient (BNVA) | payer MEDICARE, SELFPAY | PROVIDERS: PCP Internal Medicine; Visit Provider Physician Assistant | DX: K63.5 Polyp of colon (principal); K64.9 Unspecified hemorrhoids; K57.90 Diverticulosis of intestine, part unspecified, without perforation or abscess without bleeding | CPT/HCPCS: 99212 ==

== ENCOUNTER 2024-02-08 08:02 | Outpatient (REF) | payer MEDICARE, SELFPAY ==
[2024-02-08 13:11] LABS: MANUAL DIFF FLAG NO
[2024-02-08 13:23] LABS: Basophils Absolute Auto 0.1 X10*3/uL (0.0-0.2); Basophils Percent Auto 1.6 % (0-2); Eosinophils Absolute Auto 0.2 X10*3/uL (0.0-0.4); Eosinophils Percent Auto 3.5 % (0-4); Hematocrit 37.8 % (37.0-47.0); Imm Gran Abs Auto 0.03 X10*3/uL (0.00-0.03); Imm Gran Pct Auto 0.5 % (0.0-0.4); Lymphocytes Absolute Auto 1.7 X10*3/uL (1.2-4.9); Mean Corpuscular HGB Conc 31.7 g/dl (31.0-35.0); Mean Corpuscular Hemoglobin 30.3 pg (27.0-33.0); Mean Corpuscular Volume 95.5 fL (80.0-98.0); Mean Platelet Volume 9.6 fL (9.4-12.3); Monocytes Absolute Auto 0.8 X10*3/uL (0.1-1.2); Monocytes Percent Auto 13.7 % (2-11); Neutrophils Absolute Auto 2.9 x10*3/uL (2.0-8.3); Neutrophils Percent Auto 51.7 % (45-73); Platelet Count 411 X10*3/uL (160-400); Red Blood Count 3.96 X10*6/uL (4.20-5.50); Red Cell Distribution Width 14.6 % (11.0-16.0); White Blood Count 5.7 X10*3/uL (4.8-10.8)
[2024-02-08 14:03] LABS: Alanine Aminotransferase 17 U/L (0-31); Albumin Level 3.8 g/dL (3.5-5.0); Alkaline Phosphatase 47 U/L (39-117); Anion Gap 9 (12-20); Aspartate Amino Transferase 18 U/L (5-31); Bilirubin Total 0.4 mg/dL (0.0-1.0); Blood Urea Nitrogen 34 mg/dL (9-16); Calcium 9.6 mg/dL (8.4-10.2); Carbon Dioxide 29 mmol/L (22-29); Chloride 106 mmol/L (96-108); Cholesterol 164 mg/dL (<200); Estimated Glomerular Filt Rate > 60; Glucose Random 76 mg/dL (60-115); HDL Cholesterol 62 mg/dL (>40); LDL Cholesterol Calculated 88 mg/dL (<100); Potassium 4.7 mmol/L (3.3-5.1); Sodium 139 mmol/L (135-145); Total Protein 6.9 g/dL (6.5-8.0); Triglycerides 72 mg/dL (<150)
[2024-02-08 14:09] LABS: Vitamin D 25-OH Total 36.8 ng/mL (>30)
== END 2024-02-08 08:03 | disposition home or self-care (01) ==
LOC: HO.MANLDS 08:02
PROVIDERS: Visit Provider Internal Medicine
DX: I10 Essential (primary) hypertension (principal)
CPT/HCPCS: 36415; 80053; 80061; 82306; 85025

== ENCOUNTER 2025-04-25 07:28 | Outpatient (REF) | payer MEDICARE, SELFPAY ==
--- OUTSIDE RECORDS SUMMARY | 2025-04-25 07:31 | XMS_ITS | Data Portability ---
Author Organization [facility], Telehealth Patient Home Address [address] [place] [address] Assessment Encounter Date Assessment Date Assessment LastModified by Organization Details LastModified Time 07/01/2024 07/01/2024 [place] [id number] [place] [id number] (ASSET PROTECTION REPRESENTATIVE) : MDM LOW MUST MEET 2 OF 3 ELEMENTS: PROBLEMS, DATA OR RISK ELEMENT 1: PROBLEMS ADDRESSED (LOW): 2 OR MORE SELF-LIMITED OR MINOR PROBLEMS OR 1 STABLE CHRONIC ILLNESS OR 1 ACUTE UNCOMPLICATED ILLNESS OR INJURY ELEMENT 2: DATA TO BE REVISED AND ANALYZED (LOW) MUST MEET 1 OF 2 CATEGORIES: CATEGORY 1. REVIEW OF PRIOR EXTERNAL NOTES/RESULTS, ORDERING OF TEST(S) CATEGORY 2. ASSESSMENT REQUIRING INDEPENDENT HISTORIAN(S) INCLUDE WHO THE HISTORIAN IS AND RELATION TO PT AND WHY PT IS UNABLE TO GIVE COMPLETE HISTORY ELEMENT 3: RISK (LOW) RISK OF COMPLICATIONS AND/OR MORBIDITY OR MORTALITY OF PATIENT MANAGEMENT PROVIDER MUST THOROUGHLY DOCUMENT ALL OF THE ELEMENTS COVERED Not available 07/01/2024 11:59:40 08/15/2024 08/15/2024 [id number] [place] [id number] (ASSET PROTECTION REPRESENTATIVE) MDM MODERATE MUST MEET 2 OUT OF 3 ELEMENTS: PROBLEMS, DATA OR RISK ELEMENT 1: PROBLEMS ADDRESSED 1 OR MORE CHRONIC ILLNESS WITH EXACERBATION OR 2 OR MORE STABLE CHRONIC ILLNESSES OR 1 UNDIAGNOSED NEW PROBLEM OR 1 ACUTE ILLNESS W/SYMPTOMS OR 1 ACUTE COMPLICATED INJURY ELEMENT 2: DATA MUST MEET 1 OF 3 CATEGORIES CATEGORY 1: REVIEW OF PRIOR EXTERNAL NOTES, REVIEW OF RESULTS, ORDERING OF EACH TEST, ASSESSMENT REQUIRING INDEPENDENT HISTORIAN OR CATEGORY 2: INDEPENDENT INTERPRETATION OF TESTS BY ANOTHER PHYSICIAN OR SPECIALIST OR CATEGORY 3: DISCUSSION OF MGT OR TEST INTERPRETATION W/EXTERNAL PHYSICIAN OR SPECIALIST ELEMENT 3: RISK RISK OF COMPLICATIONS AND/OR MORBIDITY OR MORTALITY OF PATIENT MANAGEMENT PROVIDER MUST THOROUGHLY DOCUMENT EACH ELEMENT THAT IS COVERED Not available 08/15/2024 10:00:49 02/15/2025 02/15/2025 [id number] [place] [id number] (ASSET PROTECTION REPRESENTATIVE) MDM MODERATE MUST MEET 2 OUT OF 3 ELEMENTS: PROBLEMS, DATA OR RISK ELEMENT 1: PROBLEMS ADDRESSED 1 OR MORE CHRONIC ILLNESS WITH EXACERBATION OR 2 OR MORE STABLE CHRONIC ILLNESSES OR 1 UNDIAGNOSED NEW PROBLEM OR 1 ACUTE ILLNESS W/SYMPTOMS OR 1 ACUTE COMPLICATED INJURY ELEMENT 2: DATA MUST MEET 1 OF 3 CATEGORIES CATEGORY 1: REVIEW OF PRIOR EXTERNAL NOTES, REVIEW OF RESULTS, ORDERING OF EACH TEST, ASSESSMENT REQUIRING INDEPENDENT HISTORIAN OR CATEGORY 2: INDEPENDENT INTERPRETATION OF TESTS BY ANOTHER PHYSICIAN OR SPECIALIST OR CATEGORY 3: DISCUSSION OF MGT OR TEST INTERPRETATION W/EXTERNAL PHYSICIAN OR SPECIALIST ELEMENT 3: RISK RISK OF COMPLICATIONS AND/OR MORBIDITY OR MORTALITY OF PATIENT MANAGEMENT PROVIDER MUST THOROUGHLY DOCUMENT EACH ELEMENT THAT IS COVERED Not available 02/15/2025 09:07:43 03/01/2025 03/01/2025 [id number] [place] [id number] (ASSET PROTECTION REPRESENTATIVE) : MDM LOW MUST MEET 2 OF 3 ELEMENTS: PROBLEMS, DATA OR RISK ELEMENT 1: PROBLEMS ADDRESSED (LOW): 2 OR MORE SELF-LIMITED OR MINOR PROBLEMS OR 1 STABLE CHRONIC ILLNESS OR 1 ACUTE UNCOMPLICATED ILLNESS OR INJURY ELEMENT 2: DATA TO BE REVISED AND ANALYZED (LOW) MUST MEET 1 OF 2 CATEGORIES: CATEGORY 1. REVIEW OF PRIOR EXTERNAL NOTES/RESULTS, ORDERING OF TEST(S) CATEGORY 2. ASSESSMENT REQUIRING INDEPENDENT HISTORIAN(S) INCLUDE WHO THE HISTORIAN IS AND RELATION TO PT AND WHY PT IS UNABLE TO GIVE COMPLETE HISTORY ELEMENT 3: RISK (LOW) RISK OF COMPLICATIONS AND/OR MORBIDITY OR MORTALITY OF PATIENT MANAGEMENT PROVIDER MUST THOROUGHLY DOCUMENT ALL OF THE ELEMENTS COVERED Not available 03/01/2025 12:21:25 Plan of Treatment Reminders Order Date Submit Date Provider Last Modified By Organization Details Last Modified Time Details Appointments MEDICARE ANNUAL WELLNESS 2024 09:00A M DR MARTINO Not available Not available Not available Lab CMP, serum or plasma 2024 025 [facility], [address] [place] [address], [place], [address], 02/15/2025 09:13:20 CBC 2024 025 [facility], [address] [place] [address], [id number], 02/15/2025 09:13:20 lipid panel, blood 2024 025 [facility], [address] [place] [address], [place], [address], 02/15/2025 09:13:20 Referral None recorded. Procedures None recorded. Surgeries None recorded. Imaging XR, chest, 2 view 2024 [facility] Central Scheduling (Not Breast), [address] [place] [address], [address], 03/14/2025 17:00:17 Medication Orders codeine 10 mg-guaife nesin 100 mg/5 mL oral liquid 2024 025 [facility] #2024, [address] [place], [address], 03/14/2025 11:39:17 azithromy osvaldo 250 mg tablet 2024 025 [facility] #2024, [address] [place], [address], 03/01/2025 12:23:20 Methylpre d DP 4 mg tablets in a dose pack 2024 025 [facility] #2024, [address] [place], [address], 03/01/2025 12:23:19 meloxicam 15 mg tablet 2023 024 [facility] #2024, [address] [place], [address], 08/15/2024 10:02:41 methylpre dnisolone 4 mg tablets in a dose pack 2023 024 [facility] #2024, [address] [place], [address], 08/15/2024 09:47:15 Patient TargetsNo targets recorded. Patient Instructions Encounter Date Encounter Id Patient Instructions Last Modified By Organization Details Last Modified Time 07/01/2024 [id number] pulse oximetry* Not available 07/01/2024 12:01:18 08/15/2024 [id number] pulse oximetry* MARELY Not available 08/15/2024 10:06:03 learning about asthma Not available 08/15/2024 10:02:37 high blood pressure: care instructions Not available 08/15/2024 10:02:37 learning about high blood pressure Not available 08/15/2024 10:02:37 02/15/2025 [id number] pulse oximetry* Not available 02/15/2025 09:12:02 Reason for Referral None Reported. Results Created Date Observation Date Name Description Value Unit Range Abnormal Flag Note LastModifiedBy Organization Detail LastModifiedTime 07/01/20 24 07/01/2024 pulse oxime try* Result 97% Not Available [facility] [address] [place] [address], [phone], 06/27/2024 12:16:14 08/15/20 24 08/15/2024 pulse oxime try* Result 99 Not Available [facility] [address] [place] [address], [place], [address], 08/12/2024 16:08:42 02/16/20 25 02/15/2025 pulse oxime try* Result 98 Not Available [facility] [address] [place] [address], [place], [address], 02/13/2025 14:37:42 03/14/20 25 03/14/2025 XR, chest , 2 view No observ ation record ed. [email or web address] [address], [address], 03/15/2025 13:13:56 04/05/20 25 03/29/2025 CT, chest , w/o contr ast No observ ation record ed. [email or web address] [address] [place], [address], 04/07/2025 09:35:52 04/22/20 25 04/21/2025 XR, thora cic spine , 2 view No observ ation record ed. [email or web address] [address], [address], 04/24/2025 15:21:34 Result Notes None recorded. 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 2017 Not Available [facility] 3 12:50:27 Pain of hip region 11300802 Active 2017 Not Available [facility] 3 12:50:27 Tenosynov itis 93656760 Active 2017 Not Available [facility] 3 12:50:27 Malignant neoplasm of female breast 655262503 Active 2017 Not Available [facility] 3 12:50:27 Osteopeni a 469886302 Active 2018 due for repeat dexa: 03/2021 Not Available [facility] 3 12:50:[address] segment elevation 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 969945323 Active 2019 Not Available [facility] 3 12:50:27 Coronary arteriosc lerosis 12872974 Active 2019 Not Available [facility] 3 12:50:27 COVID-19 097562488 Active 2020 Not Available [facility] 3 12:50:27 Pneumonia caused by SARS-CoV- 2 21167078736 8750046 Active 2020 Not Available [facility] 3 12:50:27 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 33913608473 27324 Active 2021 Not Available [facility] 3 12:50:26 Dizziness 629790686 Active 2021 Not Available [facility] 3 12:50:27 Near syncope 876404145 Active 2021 Not Available [facility] 3 12:50:27 Fever with chills 353207579 Active 2021 Not Available [facility] 3 12:50:26 Pneumonit is 332903559 Active 2021 Zachery Martino, DO [address] [place], [address], [facility] 5 12:22:07 Intractab le nausea and vomiting 016819656 Active 2021 Not Available [facility] 3 12:50:27 Gout 93683926 Active 2022 Not Available [facility] 3 12:50:27 Atypical chest pain 819847005 Active 2022 ABDULAZIZ CERVANTES [address] [place], [address], [facility] 5 12:13:49 Low back pain 111690229 Active 2022 Not Available [facility] 3 12:50:27 Pain of left shoulder joint 61182347953 669582 Active 2022 ABDULAZIZ CERVANTES [address] [place], [address], [facility] 3 10:00:56 Essential hypertens ion 91314251 Active 2022 ABDULAZIZ CERVANTES [address] [place], [address], [facility] 3 11:22:22 Acute kidney injury 64536898 Active 2023 ABDULAZIZ CERVANTES [address] [place], [address], [facility] 4 16:22:18 Hypertens odilia urgency 952675094 Active 2023 ABDULAZIZ CERVANTES [address] [place], [address], [facility] 4 10:27:34 Uric acid level above reference range 95814862 Active 2023 ABDULAZIZ CERVANTES [address] [place], [address], [facility] 4 10:30:50 Hyperuric emia 07272901 Active 2023 ABDULAZIZ CERVANTES [address] [place], [address], [facility] 4 09:05:04 Cough 75118429 Active 2023 ABDULAZIZ CERVANTES [address] [place] [address], [address], [facility] 4 11:57:41 Wheezing 28924469 Active 2023 ABDULAZIZ CERVANTES [address] [place] [address], [address], [facility] 4 11:51:37 Pneumonia 192323208 Active 2023 ABDULAZIZ CERVANTES [address] [place] [address], [address], [facility] 4 16:11:05 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 2023 ABDULAZIZ CERVANTES [address] [place] [address], [address], [facility] 4 10:26:37 Acute bronchiti s 32616375 Active 2023 ABDULAZIZ CERVANTES [address] [place] [address], [address], [facility] 5 11:33:16 Acute otitis media 0205702 Active 2023 ABDULAZIZ CERVANTES [address] [place] [address], [address], [facility] 4 11:06:38 Impacted cerumen in right ear 84647196894 489[address] Active 2023 ABDULAZIZ CERVANTES [address] [place] [address], [address], [facility] 4 11:06:59 Otalgia of right ear 6539837456 Active 2023 ABDULAZIZ CERVANTES [address] [place] [address], [address], [facility] 4 11:05:34 Orthostat ic hypotensi on 26140433 Active 2023 ABDULAZIZ CERVANTES [address] [place] [address], [address], [facility] 4 11:08:01 Acute otitis media 9075753 Active 2023 ABDULAZIZ CERVANTES [address] [place] [address], [address], [facility] 4 13:49:14 Allergic reaction to drug 765949683 Active 2023 ABDULAZIZ CERVANTES [address] [place] [address], [address], [facility] 4 09:01:12 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 2023 Zachery Martino, DO [address] [place] [address], [address], [facility] 4 11:58:26 Pain of right shoulder joint 33291602605 271023 Active 2023 Zachery Martino, DO [address] [place] [address], [address], [facility] 4 10:01:06 Acute cough Active 2024 ABDULAZIZ CERVANTES [address] [place] [address], [address], [facility] 5 11:32:58 Dyspnea 148210074 Active 2024 ABDULAZIZ CERVANTES [address] [place] [address], [address], [facility] 5 13:14:38 Rib pain 579556385 Active 2024 ABDULAZIZ CERVANTES [address] [place] [address], [address], [facility] 5 12:13:15 Persisten t cough 507782903 Active 2024 ABDULAZIZ CERVANTES [address] [place], [address], [facility] 5 12:16:22 Asthma 377585631 Active 2017 Not Available [facility] 3 12:50:26 Problem Notes None recorded. Procedures Surgical History Date Name Laterality Status Provider Name and Address Organization Details Recorded Time 03/26/20 21 Colonoscopy completed Zachery Martino DO [address] [place], [address], [facility] 03/27/2021 07:05:59 Imaging Results None recorded. Procedure Notes None recorded. Medical Equipment None Reported. Allergies Allergen ID Allergen Name Allergen Category Reaction Reaction Severity Criticality Documentation Date Start Date Code Code System Note Provider Name and Address Organization Details Recorded Time 8310 Vaccine product containin g only Human orthopneu movirus antigen (medicina l product) medicatio n rash Not available Not available 06/14/2024 64179 [id number] SNOMED ABDULAZIZ CERVANTES [address] [place], [address], [facility] 4 10:12:48 Medications Name Sig Start Date Stop Date Status Note LastModified by Organization Details LastModified Time amoxicillin 500 mg capsule 06/29 completed Not Available Not Available Not Available isosorbide dinitrate 10 mg tablet TAKE 1 TABLET BY MOUTH EVERY DAY active Not Available Not Available No t Available atorvastati n 80 mg tablet Take 1 tablet every day by oral route for 30 days. 12/20 completed Not Available Not Available Not Available prednisone 10 mg tablet take 4 tabs x 2 daystake 3 tabs x 2 daystake 2 tabs x 2 daystake 1 tab x 2 days 2024 active Not Available Not Available Not Avai lable ipratropium 0.5 mg-albutero l 3 mg (2.5 mg base)/3 mL nebulizatio n soln Inhale 3 mL 4 times a day by nebulizat ion route as needed. 11/15 completed Not Available Not Available Not Available albuterol sulfate 2.5 mg/3 mL (0.083 %) solution for nebulizatio n INHALE 3 ML 4 TIMES A DAY BY NEBULIZAT ION ROUTE NEEDED FOR 10 DAYS. active Not Available Not Available No t Available azithromyci n 250 mg tablet TAKE 2 TABLETS BY MOUTH TODAY, THEN TAKE 1 TABLET DAILY FOR 4 DAYS DIRECTED active Not Available Not Available No t Available benzonatate 200 mg capsule TAKE 1 CAPSULE 3 TIMES A DAY BY ORAL ROUTE NEEDED FOR 7 DAYS, FOR COUGH. 02/14 completed Not Available Not Available Not Available prazosin 1 mg capsule TAKE 1 CAPSULE BY MOUTH EVERY DAY active Not Available Not Available No t Available meloxicam 15 mg tablet TAKE 1 TABLET BY MOUTH EVERY DAY active Not Available Not Available No t Available prednisone 20 mg tablet TAKE 1 TABLET BY MOUTH EVERY DAY FOR 10 DAYS 02/14 completed Not Available Not Available Not Available isosorbide mononitrate ER 30 mg tablet,exte nded release 24 hr Take 1 tablet every day by oral route. 06/08 completed Not Available Not Available Not Available dexamethaso ne 6 mg tablet 10/26 completed Not Available Not Available Not Available amlodipine 2.5 mg tablet TAKE 1 TABLET BY MOUTH EVERY DAY FOR 30 DAYS active Not Available Not Available No t Available clopidogrel 75 mg tablet TK 1 T PO QD 12/12 completed Not Available Not Available Not Available allopurinol 100 mg tablet TAKE 1 TABLET BY MOUTH EVERY DAY FOR 30 DAYS 06/08 completed Not Available Not Available Not Available ciprofloxac in 500 mg tablet TAKE 1 TABLET BY MOUTH EVERY 12 HOURS FOR 10 DAYS 06/06 completed Not Available Not Available Not Available omeprazole 40 mg capsule,del ayed release TAKE 1 CAPSULE BY MOUTH EVERY DAY FOR 90 DAYS 06/06 completed Not Available Not Available Not Available aspirin 81 mg tablet,chapo yed release TAKE 1 TABLET BY MOUTH EVERY DAY active Not Available Not Available No t Available guaifenesin 100 mg/5 mL oral liquid Take 10 mL every 4 hours by oral route as directed for 15 days. 12/12 completed Not Available Not Available Not Available triamcinolo ne acetonide 0.1 % topical cream APPLY TOPICALLY TO THE AFFECTED AREA EVERY DAY. DO NOT USE ON FACE 08/30 completed Not Available Not Available Not Available spironolact one 25 mg tablet TAKE 1 TABLET (25 MG TOTAL) BY MOUTH DAILY. active Not Available Not Available No t Available carvedilol 3.125 mg tablet TAKE 1 TABLET BY MOUTH TWICE DAILY 09/17 completed Not Available Not Available Not Available ondansetron 8 mg disintegrat ing tablet PLACE 1 TABLET TWICE A DAY BY TRANSLING UAL ROUTE FOR 7 DAYS. 03/11 completed Not Available Not Available Not Available baclofen 10 mg tablet TAKE 1 TABLET BY MOUTH THREE TIMES A DAY NEEDED FOR 14 DAYS 09/07 completed Not Available Not Available Not Available benzonatate 100 mg capsule 12/12 completed Not Available Not Available Not Available triamcinolo ne acetonide 0.1 % topical ointment APPLY HIS FILM TWICE DAILY TO LEGS FOR TWO WEEKS active Not Available Not Available No t Available dexamethaso ne 4 mg tablet TAKE 2 TABLETS BY MOUTH EVERY DAY FOR 4 DAYS THEN 1 TABLET FOR 4 DAYS THEN 1/2 TABLET FOR 4 DAYS 08/30 completed Not Available Not Available Not Available oxycodone 5 mg capsule TAKE 1 CAPSULE BY MOUTH EVERY 6 HOURS NEEDED FOR PAIN 08/30 completed Not Available Not Available Not Available omeprazole 20 mg capsule,del ayed release TAKE 1 CAPSULE BY MOUTH EVERY DAY FOR 90 DAYS active Not Available Not Available No t Available montelukast 10 mg tablet TAKE 1 TABLET BY MOUTH EVERY DAY active Not Available Not Available No t Available codeine 10 mg-guaifene sin 100 mg/5 mL oral liquid TAKE 10 ML BY MOUTH EVERY 4 HOURS NEEDED FOR 7 DAYS *NOT COVERED* active Not Available Not Available No t Available bisacodyl 5 mg tablet,chapo yed release TAKE 2 TABLETS BY MOUTH ONCE AT 12 PM THE DAY BEFORE YOUR PROCEDURE 08/30 completed Not Available Not Available Not Available hydrochloro thiazide 25 mg tablet TAKE 1 TABLET BY MOUTH EVERY DAY FOR 30 DAYS 2023 active Not Available Not Available Not Avai lable mupirocin 2 % topical ointment 04/29 completed Not Available Not Available Not Available loteprednol etabonate 0.5 % eye drops,suspe nsion INSTILL 1 DROP INTO BOTH EYES TWICE A DAY active Not Available Not Available No t Available polyethylen e glycol 3350 17 gram/dose oral powder TAKE DIRECTED BY MOUTH THE DAY BEFORE YOUR PROCEDURE 02/14 completed Not Available Not Available Not Available levofloxaci n 500 mg tablet TAKE 1 TABLET BY MOUTH EVERY 24 HOURS FOR 10 DAYS 04/18 completed Not Available Not Available Not Available methylpredn isolone 4 mg tablets in a dose pack TAKE 6 TABLETS ON DAY 1 DIRECTED ON PACKAGE AND DECREASE BY 1 TAB EACH DAY FOR A TOTAL OF 6 DAYS active Not Available Not Available No t Available albuterol sulfate HFA 90 mcg/actuati on aerosol inhaler Inhale 2 puffs every 4 hours by inhalatio n route for 30 days. 2024 active Not Available Not Available Not Avai lable amoxicillin 875 mg-potassiu m clavulanate 125 mg tablet TAKE 1 TABLET BY MOUTH EVERY 12 HOURS FOR 10 DAYS 06/06 completed Not Available Not Available Not Available nabumetone 500 mg tablet take 2 tablets by mouth once daily 11/15 completed Not Available Not Available Not Available neomycin-po lymyxin-hyd rocort 3.5 mg-10,000 unit/mL-1 % ear drops,susp INSTILL 4 DROPS INTO AFFECTED EAR(S) 3 TIMES A DAY active Not Available Not Available No t Available olmesartan 40 mg tablet TAKE 1 TABLET BY MOUTH EVERY DAY active Not Available Not Available No t Available Laxative (bisacodyl) 5 mg tablet 09/07 completed Not Available Not Available Not Available olmesartan 40 mg-hydrochl orothiazide 25 mg tablet TAKE 1 TABLET BY MOUTH EVERY DAY 06/08 completed Not Available Not Available Not Available ciprofloxac in 0.3 %-dexametha sone 0.1 % ear drops,suspe nsion INSTILL 4 DROPS INTO AFFECTED EAR(S) TWICE A DAY FOR 7 DAYS *NOT COVERED* 06/14 completed Not Available Not Available Not Available rosuvastati n 5 mg tablet Take 1 mg every day by oral route for 30 days. 09/28 completed Not Available Not Available Not Available rosuvastati n 10 mg tablet TAKE 1 TABLET BY MOUTH EVERY EVENING active Not Available Not Available No t Available Citracal 12/12 completed Not Available Not Available Not Available diclofenac 1 % topical gel APPLY 2 GRAMS TOPICALLY TO THE AFFECTED AREA FOUR TIMES DAILY 05/26 completed Not Available Not Available Not Available Combivent Respimat Take one puff prn 02/09 completed Not Available Not Available Not Available ProAir RespiClick Take 2 puffs prn 11/04 completed Not Available Not Available Not Available Fluzone High-Dose 6979-5026 (PF) 180 mcg/0.5 mL intramuscul ar syringe 08/11 completed Not Available Not Available Not Available Readi-Cat 2 2 % (w/v) oral suspension 08/30 completed Not Available Not Available Not Available Shingrix (PF) 50 mcg/0.5 mL intramuscul ar suspension, kit 11/15 completed Not Available Not Available Not Available Fluzone High-Dose (PF) 180 mcg/0.5 mL intramuscul ar syringe 08/11 completed Not Available Not Available Not Available Wixela Inhub 250 mcg-50 mcg/dose powder for inhalation TAKE 1 PUFF BY MOUTH TWICE A DAY *RINSE MOUTH AFTER USE* active Not Available Not Available No t Available Afluria Qd 2018- (36 mos up)(PF)60 mcg (15 mcg x4)/0.5 mL IM syringe 11/15 completed Not Available Not Available Not Available Fluad Quad (6 5yr up)(PF) 60 mcg (15 mcg x 4)/0.5mL IM syringe 06/29 completed Not Available Not Available Not Available Vitals Date Recorded Body height Body mass index (BMI) Body weight Heart rate Oxygen saturation Oxygen saturation in Arterial blood by Pulse oximetry Systolic And Diastolic Provider Name and Address Organization Details Last Updated DateTime 5 153.67 cm 29.4 kg/m2 47002.6 3 g 74 /min 98 % 98 % 140/70 mm[Hg] Sally Lambert [facility] 5 08:58:20 Date Recorded Body height Heart rate Oxygen saturation Oxygen saturation in Arterial blood by Pulse oximetry Systolic And Diastolic Provider Name and Address Organization Details Last Updated DateTime 5 153.67 cm 73 /min 96 % 96 % 132/68 mm[Hg] Rita Peters [facility] 5 11:25:22 Date Recorded Body height Body mass index (BMI) Body weight Heart rate Oxygen saturation Oxygen saturation in Arterial blood by Pulse oximetry Systolic And Diastolic Provider Name and Address Organization Details Last Updated DateTime 4 153.67 cm 29.6 kg/m2 40540.2 2 g 77 /min 97 % 97 % 142/80 mm[Hg] Rita Peters [facility] 4 11:41:26 Date Recorded Body height Body mass index (BMI) Body weight Heart rate Oxygen saturation Oxygen saturation in Arterial blood by Pulse oximetry Systolic And Diastolic Provider Name and Address Organization Details Last Updated DateTime 4 153.67 cm 30.2 kg/m2 42237 g 67 /min 99 % 99 % 138/74 mm[Hg] Marc Aaron [facility] 4 09:48:43 Social History Question Answer Notes LastModified by Organizat ion Details LastModified Time Tobacco Smoking Status [facility] [place] 01/22/2018 15:09:49 What Was The Date Of Your Most Recent Tobacco Screening? 03/14/2025 [email or web address] Information not available 03/14/2025 How Many Years Have You Smoked Tobacco? 20 [email or web address] Information not available 01/22/2018 Sex: Unknown Functional Status Question Answer Note LastModified by Organization D etails LastModified Time Do you or have you ever used any other forms of tobacco or nicotine? No Information not available 03/14/2022 Mental Status None recorded. Family History Nothing Reported. Medical History Condition Response Coronary Artery Disease N Other N Gout N Blood Diseases N Kidney Stones N Breast Cancer N Blood Transfusion N Lung Disease N Depression N COPD N Defects or Inherited Disease N Anxiety Disorder N Muscle, Joint, or Bone Problems N Obesity N Vision or Eye Problems N Arthritis N Infertility N Polyps N Mental Disorder N Cancer N Stroke N Varicosities N Endometriosis N Bladder or Kidney Problems N High Cholesterol N Liver Disease N Fibromyalgia N Headaches N Kidney Disease N Allergies/Hayfever N Heart Problems N Hospitalizations N Thyroid Problems N GI Problems N Eating Disorder N Skin Problems N Anemia N MRSA exposure N Constipation N Mental Illness N Diabetes N Ovarian Cancer N Seizures/Epilepsy N Tuberculosis N Congestive Heart Failure (CHF) N Eczema N Abuse/Domestic Violence N Diverticulitis N Asthma N Reflux/GERD N Hepatitis N Heart Disease N Pulmonary Embolism N Hypertension N Chicken Pox N Autism Spectrum Disorder (ASD) N Osteoporosis N Gynecological HistoryNo gynecological history recorded. Obstetrics History GPAL:G 0 P 0 0 0 0 Immunizations Vaccine Type Date Status Note Provider Nam e and Address Organization Details Recorded Time zoster recombinant 9 completed Not Available [facility] 05/27/2022 22:13:55 Influenza, split virus, quadrivalent, preservative 1 completed Not Available [facility] 05/27/2022 22:13:55 COVID-19, mRNA, LNP-S, PF, 100 mcg/0.5mL dose or 50 mcg/0.25mL dose 1 completed Not Available [facility] 05/27/2022 22:13:55 COVID-19, mRNA, LNP-S, PF, 100 mcg/0.5mL dose or 50 mcg/0.25mL dose 1 completed Not Available [facility] 05/27/2022 22:13:55 Pneumococcal conjugate PCV 13 5 completed Not Available [facility] 05/27/2022 22:13:55 influenza, unspecified formulation 2 completed Umu chen, [facility] 09/16/2022 08:42:52 influenza, unspecified formulation 3 completed Zachery Martino, [address], [place], [address] 07/26/2023 18:30:39 Influenza, split virus, quadrivalent, preservative 8 completed Not Available [facility] 05/27/2022 22:13:55 zoster live 9 completed Not Available [facility] 05/27/2022 22:13:55 Influenza, split virus, quadrivalent, preservative 9 completed Not Available [facility] 05/27/2022 22:13:55 Influenza, split virus, quadrivalent, preservative 0 completed Not Available [facility] 05/27/2022 22:13:55 COVID-19, mRNA, LNP-S, PF, 100 mcg/0.5mL dose or 50 mcg/0.25mL dose 1 completed Not Available [facility] 05/27/2022 22:13:55 zoster live 3 completed Not Available [facility] 05/27/2022 22:13:55 Past Encounters Encounter ID Performer Location Encounter Start Date Encounter Closed Date Diagnosis/Indication Diagnosis SNOMED-CT Code Diagnosis ICD10 Code Diagnosis Note [id number] Zachery Martino [facility] [address] [facility],[place] [address] 01/22/2018 14:46:56 01/22/2018 16:20:09 Streptococcal infectious disease 82463810 A49.1 Moderate p ersistent asthma 878637311 J45.40 Acute asthma 769767286 J 45.901 likely due to viral URI f/u if sx worsen or do not improve after completing prednisone [id number] Zachery Martino [facility] [address] [facility],[place] [address] 02/09/2018 14:20:33 02/09/2018 15:56:11 Asthma 262363593 J45.909 Acute asthma 816988379 J 45.901 continue mucinex daily [id number] Zachery Martino [facility] [address] [facility],[place] [address] 06/11/2018 13:56:15 06/11/2018 15:13:58 Asthma 052299504 J45.909 stable with good peak flows and oximetry no sob Hypertensive disorder 38 211425 I10 bp is stable and no cardiac sx [id number] Zachery Martino [facility] [address] [facility],[place] [address] 08/11/2018 15:07:42 08/13/2018 09:16:00 Pigmented skin lesion of uncertain nature 199829257 L81.9 Hypertensive disorder 38 103516 I10 mildly elevated, prob. 2nd anxiety [id number] Zachery Martino [facility] [address] [facility],[place] [address] 11/19/2018 11:22:09 11/19/2018 12:29:37 Asthma 619216504 J45.909 stable with good peak flows and oximetry no sob relates was given spiriva respimat by dr guerra and has stopped on own as she felt it did not help and gave her dry heaves Hepatitis C screening 41 4695936 Z11.59 will order Osteopenia 387079103 M85 .80 pt feels she doesnt need but i asked her to get anyway Hypertensive disorder 38 182576 I10 bp is stable and no cardiac sx will cont her usu meds etc [id number] Zachery Martino [facility] [address] [facility], [place] [address] 04/29/2019 10:51:02 04/29/2019 11:40:32 Asthma 648070468 J45.909 Lower abdominal pain 545 56614 R10.30 go to ER if sx worsen before ct is done Right inguinal hernia 23 7950705 K40.90 [id number] Zachery Martino [facility] [address] [facility], [place] [address] 06/03/2019 09:19:35 06/03/2019 10:41:49 Asthma 467825938 J45.909 stable with good peak flows and oximetry no sob relates was given spiriva respimat by dr guerra and has stopped on own as she felt it did not help and gave her dry heaves Hypertensive disorder 38 340429 I10 bp is stable and no cardiac sx will cont her usu meds etc Diverticular disease 397 166974 K57.90 [id number] Zachery Martino [facility] [address] [facility], [place] [address] 11/04/2019 13:20:37 11/04/2019 14:07:18 Atypical chest pain 727127383 R07.89 seems likely more epigastric pain due to gastritis/ PUD if pain worsens or develops sob go to ER, but at this time the EKG is reassuring and her exam is more suggestive of gastritis Asthma 151844354 J45.90 9 Epigastric pain 46041697 R10.13 [id number] Zachery Martino [facility] [address] [facility], [place] [address] 11/15/2019 10:47:08 11/15/2019 11:41:36 Acute myocardial infarction of inferior wall 83589543 I21.19 Placed on Ator, plavix, aspirin, carv with LATOSHA Will continue to monitor for CP and do card rehab Hypertensive disorder 38 118090 I10 BP is stable with carv [id number] Zachery Martino [facility] [address] [facility] [address] [address] 12/21/2019 10:16:00 12/21/2019 11:20:32 Asthma 824501573 J45.909 stable with good peak flows and oximetry no sob still she has a dry cough for several weeks Subsequent ST segment elevation myocardial infarction of inferior wall 200354422 I22.1 stable and no evid of any recurrent anginal pain note did not tolerate statin Hypertensive disorder 38 428826 I10 BP is stable with carv Cough 84063420 R05 [id number] Zachery Martino [facility] [address] [facility] [address],[place] [address] 03/26/2020 15:32:47 03/27/2020 09:24:04 Asthma 527965543 J45.909 stable Lipoma of skin 302500055 D17.30 most likely a lipoma given hx will continue to monitor it [id number] Zachery Martino [facility] [address] [facility] [address],[place] [address] 04/06/2020 10:45:24 04/06/2020 12:09:07 Asthma 930179077 J45.909 stable Acute sinusitis 81442823 J01.90 will give abx to see if she has improvemen t [id number] Zachery Martino [facility] [address] [facility] [address],[place] [address] 06/29/2020 11:50:37 06/29/2020 14:30:03 Asthma 986805352 J45.909 stable with good peak flows and oximetry no sob still she has a dry cough for several weeks Hypertensive disorder 38 125798 I10 BP is stable with carvedilol cardiology insisits on bid dosing Coronary arteriosclerosis 49325074 I25.10 she is asymptomat ic and doing well no major issues overall [id number] Zachery Payne Ana [facility] [address] [facility] [place] [address] 09/28/2020 12:06:43 09/28/2020 13:23:58 Asthma 847918439 J45.909 stable with good peak flows and oximetry no sob still she has a dry cough for several weeks Coronary arteriosclerosis 30996105 I25.10 she is asymptomat ic and doing well no major issues overall Hypertensive disorder 38 299357 I10 BP is stable with carvedilol cardiology insisits on bid dosing Epigastric pain 07616161 R10.13 will need to first look at her Gall bladder and pancreas and call me for result if negative then a GI consult for 'scope or UGI to look for gastriitis or PUD [id number] Zachery Payne Ana [facility] [address] [facility], [place] [address] 10/26/2020 08:50:09 10/26/2020 15:30:19 COVID-19 267491042 U07.1 the patient is recovering at home feels much better than when in hospital has finished her medication for hospital no interventi ons needed at this time Asthma 427105225 J45.90 9 stable now with proper treatment and use of oxygen Subsequent ST segment elevation myocardial infarction of inferior wall 344978266 I22.1 stable after stent, no side effects or symptoms Hypertensive disorder 38 867111 I10 hypotensiv e with symptoms, discussed stopping olmesartan /HCTZ for the time being so her BP can stabilize patient agrees with call on thursday with update Acute inju ry of kidney 0358971506 9955796 N17.9 improved labs at hospital but too avoid any complicati ons and due to hypotensio ns agreed to stop the olmesartan and HTCZ for the time being [id number] Zachery Payne Ana [facility] [address] [facility] [address] [place] [facility] [place] [address] 11/09/2020 08:17:13 11/09/2020 14:44:22 Cough 22352819 R05 will trial guaifenesi n and see if improvemen t in her cough, which has been causing her trouble breathing subjective ly COVID-19 112481480 U07.1 has having a decline in her health since her COVID diagnosis will continue to monitor closely and see if she is having relapses Pneumonia caused by SARS-CoV-2 2336026083 32193092 J12.82 diagnosed at hospital on appropriat e abx [id number] Zachery Conteben [facility] [address] [facility], [place] [place] [address] 12/12/2020 10:52:22 12/12/2020 12:21:21 Asthma 869242845 J45.909 stable with good peak flows and oximetry no sob still she has a dry cough for several weeks Hypertensive disorder 38 323855 I10 BP is stable with carvedilol cardiology insisits on bid dosing Pneumonia caused by SARS-CoV-2 1721611844 78119528 J12.82 the infalmmato ry post infection has been a big prob with the coughing that has gradually worsened we will need to dose her asthma component with pred we will also need another cxr [id number] Zachery Payne Ana [facility] [address] [facility], [place] [address] 12/18/2020 09:42:40 12/18/2020 10:24:40 Asthma 738042675 J45.909 stable with good peak flows and oximetry no sob still she has a dry cough for several weeks Hypertensive disorder 38 945271 I10 BP is stable with carvedilol cardiology insisits on bid dosing Pneumonia caused by SARS-CoV-2 0816248166 39402148 J12.82 relates overall she is feeling ok much improved now off albert isone taper off O2 Coronary arteriosclerosis 81869178 I25.10 she is asymptomat ic and doing well no major issues overall [id number] Zachery HoldenMary Ann Martino [facility] [address] [facility] [place] [place] [address] 08/30/2021 13:36:53 08/30/2021 15:15:25 Asthma 714909792 J45.909 stable with good peak flows and oximetry no sob still she has a dry cough for several weeks Hypertensive disorder 38 798405 I10 BP is stable with carvedilol cardiology insists on bid dosing Hepatitis C screening 41 2564533 Z11.59 will order [id number] Zachery Martino [facility] [address] [facility],[place] [address] 10/07/2021 09:24:41 10/09/2021 08:19:20 Coronary arteriosclerosis 42765818 I25.10 she is asymptomat ic and doing well no major issues overall Asthma 088485486 J45.90 9 stable with good peak flows and oximetry no sob still she has a dry cough for several weeks Hypertensive disorder 38 944697 I10 BP is stable with carvedilol [id number] Zachery Martino [facility] [address] [facility],[place] [address] 12/11/2021 14:17:55 12/11/2021 15:02:36 Osteoarthrosis of the carpometacarpal joint of the thumb 37242463 M18.11 will trial diclofenac gel topical for the thumb Trigger fi nger of right hand 3601209099 0796320 M65.311 will fu with recheck before she heads down to [place] Subsequent ST segment elevation myocardial infarction of inferior wall 606783291 I22.1 stable [id number] Zachery Martino [facility] [address] [facility],[place] [address] 12/23/2021 09:47:03 12/24/2021 09:59:30 Trigger thumb of right hand 5356225331 88120 M65.311 will fu with ortho after she comes back from [place] [id number] Zachery Martino [facility] [address] [facility],[place] [address] 03/14/2022 15:04:53 03/14/2022 15:55:03 Hypertensive disorder 52917591 I10 BP is stable with carvedilol Asthma 396871511 J45.90 9 stable with good peak flows and oximetry no sob still she has a dry cough for several weeks Advance care planning 71 9228645 Z71.89 done Active or passive immunization 446929212 Z23 patient advised for due vaccines (tdap, pneu 13 & 23, shingles) Coronary arteriosclerosis 09113935 I25.10 she is asymptomat ic and doing well no major issues overall she is cont to walk daily Primary sq uamous cell carcinoma of skin of right lower limb 7840208118 422915 C44.722 she will cont the derm e al and have it removed [id number] ABDULAZIZ CERVANTES [facility] [address] [facility], [place] [address] 05/26/2022 11:33:50 05/27/2022 11:40:04 Dizziness 978452212 R42 will fu with screening Near syncope 911119220 R 55 will start work up for other causes for dizziness [id number] Zachery Martino DO [facility] [address] [facility],[place] [address] 08/08/2022 14:34:34 08/11/2022 12:08:17 Dizziness 801240421 R42 will adjust the medication take carvedilol offwill take off rosuvastat in the week after to see if it's medication related US carotid and blood work was normalCT in the ER was normal [id number] Zachery Martino DO [facility] Internal [facility] [address] [facility],[place] [address] 08/25/2022 14:17:18 08/25/2022 16:12:29 Fever with chills 701499229 R50.9 current workup is inconclusi ve see ER report but i am susp[ect for obvious GI viral source or foodbourne source she has chkd a covid test and this was negative Pneumonitis 335108627 J1 8.9 Intractabl e nausea and vomiting 843049841 R11.2 [id number] Zachery Martino DO [facility] [address] [facility],[place] [address] 09/17/2022 08:53:24 09/17/2022 09:23:22 Asthma 512523562 J45.909 stable with good peak flows and oximetry no sob still she has a dry cough for several weeks Hypertensive disorder 38 373445 I10 BP is stable off carvedilol and dizziness is better now cont the olmesartan Pneumonitis 765314795 J1 8.9 lungs clear just a residual dry cough [id number] Zachery Martino [facility] [address] [place] [address] 03/11/2023 09:05:46 03/11/2023 09:45:35 Hypertensive disorder 01405018 I10 BP is stable off carvedilol and dizziness is better now cont the olmesartan Asthma 473769638 J45.90 9 stable with good peak flows and oximetry no sob still she has a dry cough for several weeks Coronary arteriosclerosis 81289317 I25.10 she is asymptomat ic and doing well no major issues overall she is cont to walk daily Subsequent ST segment elevation myocardial infarction of inferior wall 146744506 I22.1 stable and no evid of any recurrent anginal pain note did not tolerate statin Advance care planning 71 0061811 Z71.89 done Gout 17765727 M10.9 [id number] Zachery Martino [facility] [address] [place] [address] 06/08/2023 13:49:28 06/09/2023 08:58:30 Atypical chest pain 693061394 R07.89 drop down to 10 mg in the AM, not nightstop the 30 mg ERstopped HTCZ Low back pain 358745575 M54.50 M54.59 low back sprain [id number] Zachery Martino [facility] [address] [place] [address] 09/07/2023 09:56:46 09/07/2023 10:23:57 Asthma 134505828 J45.909 stable with good peak flows and oximetry no sob still she has a dry cough for several weeks Atypical chest pain 1025 44193 R07.89 no longer an issue Hypertensive disorder 38 698754 I10 BP is stable off carvedilol and dizziness is better now cont the olmesartan Pain of le ft shoulder joint 7259050656 0827666 M25.512 will send referral again Coronary arteriosclerosis 91045802 I25.10 she is asymptomat ic and doing well no major issues overall she is cont to walk daily Gout 61241910 M10.9 uric acid 5.7 [id number] Zachery Martino DO [facility] [address] [facility] [address],[place] [facility] [place] [address] 10/09/2023 08:23:42 10/09/2023 16:06:41 Essential hypertension 37758667 I10 will try adding low dose amlodipine to her olmesartan monitor her BP, trying to get her to 130/80 [id number] Zachery Martino [facility] [address] [facility] [address],[place] [address] 10/30/2023 15:52:54 10/30/2023 16:42:18 Acute kidney injury 80964294 N17.0 stable Hypertensive disorder 38 783076 I10 will set up with olmesartan again and take off amlodipine will add prazosin a week later [id number] Zachery Martino DO [facility] [address] [facility] [address] [place] [facility] [place] [address] 11/06/2023 10:07:38 11/06/2023 10:38:[address] segment elevation myocardial infarction of inferior wall 292544917 I22.1 stable Hypertensive urgency 443 838434 I16.0 will restart the HTCZ since it was the only with Uric acid level above reference range 22695037 E79.0 will monitor levels in the meantime [id number] Zachery Martino DO [facility] [address] [facility] [address],[place] [facility] [place] [address] 11/13/2023 08:10:42 11/16/2023 14:37:28 Hyperuricemia 26172045 E79.0 will set up with standing uric acid order Atypical chest pain 1025 21896 R07.89 stable Essential hypertension 52459415 I10 started back on the HTCZ/olmes marissa which is working [id number] Zachery Martino DO [facility] [address] [facility] [address],[place] [address] 02/15/2024 14:38:50 02/15/2024 16:22:17 Adult health examination 171045918 Z00.00 Screening for cardiovascular system disease 365702502 Z13.6 Screening for malignant neoplasm of colon 301838834 Z12.11 stable and has had recent colonoscop y Screening for osteoporosis 289757812 Z13.820 Screening mammography 24 547966 Z12.31 Hypertensive disorder 38 279862 I10 BP is stable off carvedilol and dizziness is better now cont the olmesartan Depression screening 171 922816 Z13.31 Negative Screening Asthma 759617476 J45.90 9 stable with good peak flows and oximetry no sob still she has a dry cough for several weeks [id number] Zachery Martino [facility] [address] [facility],[place] [address] 04/18/2024 10:36:57 04/18/2024 11:21:45 Depression screening 127053132 Z13.31 negative Acute otitis media 84252 03 H65.03 will set up with alt abx for bilateral ear infection Impacted c erumen in right ear 9955363716 320379 H61.21 resolved [id number] Zachery Martino [facility] [address] [facility],[place] [address] 06/06/2024 10:25:57 06/06/2024 11:19:56 Otalgia of right ear 2588077310 H92.01 start ear drop, has retraction Orthostati c hypotension 96601324 I95.1 will cut her HTCZ in half, continue on medication s as prescribed otherwisem onitor BPcome back next week to see how she is [id number] Zachery Mratino [facility] [address] [facility],[place] [address] 06/14/2024 09:47:21 06/14/2024 11:31:26 Dizziness 141952839 R42 resolved Allergic r eaction to drug 567830826 T50.905A doc in chart [id number] Zachery Martino [facility] [address] [facility],[place] [address] 07/01/2024 11:34:20 07/01/2024 15:49:26 Asthma 758609280 J45.909 stable with good peak flows and oximetry no sob still she has a dry cough for several weeks Essential hypertension 48141018 I10 stable Allergic urticaria 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 009 L50.0 unknown cause bit is very p [id number] Zachery Martino [facility] [address] [place] [address] 08/15/2024 09:41:05 08/15/2024 10:08:04 Asthma 405052014 J45.909 stable with good peak flows and oximetry no sob still she has a dry cough for several weeks Essential hypertension 85513303 I10 stable Pain of ri ght shoulder joint 1283141617 9020212 M25.511 seems to be tendinitis [id number] Zachery Martino [facility] [address] [place] [address] 02/15/2025 08:47:12 02/15/2025 09:23:11 Asthma 350635982 J45.909 stable with good peak flows and oximetry no sob still she has a dry cough for several weeks Essential hypertension 75984652 I10 stable Pain of ri ght shoulder joint 0600537373 2040192 M25.511 seems to be tendinitis Depression screening 171 675716 Z13.31 Negative Screening Coronary arteriosclerosis 69970752 I25.10 she is asymptomat ic and doing well and is not having any cp since taking the isosorbid no major issues overall she is cont to walk daily [id number] Zachery Martino [facility] [address] [place] [address] 03/01/2025 09:14:40 03/01/2025 12:06:44 Pneumonitis 788939976 J98.4 lungs clear just a residual dry cough [id number] Zachery Martino [facility] [address] [place] [address] 03/14/2025 11:16:14 03/14/2025 14:54:43 Asthma 910303841 J45.909 stable now with proper treatment and use of oxygen Depression screening 171 051642 Z13.31 negative Acute cough 1183187442 11961384 R05.1 cont OTC until CXR returns Acute bronchitis 6860054 2 J20.9 will set up with XR, ?walking pna vs allergic bronchitis Health Concerns Section Related Observation LastModified by Organization Detai ls LastModified Time None Recorded Concern Status LastModified by Organization Details LastModified Time None Recorded Advance Directives Directive None Recorded Payers Insurance Date Sequence Insurance Name Policy Number Policy Gary Covered Member ID Gary Member ID Guarantor Name 03/14/2025 1 [employer] - MEDICARE ADVANTAGE PLAN (MEDICARE REPLACEMENT HMO) [id number] Ana Maria Bingham [id number] Ana Maria Bingham Notes Date Note Type Note Provider Name and Address Organization Details Recorded Time 4 text/htm rupinder developed a macular papular rash over her limbs but tati lower legsvery itchy doesnt have appt with derm until late next week Zachery Martino DO [address] [place] [address], [id number], [facility] 07/01/2024 15:05:47 4 text/htm l Care Management - HypertensionReported bypatient.Self Care:not under emotional stress Severity:symptoms are improving; does not interfere with daily activities Associated Symptoms:no dizziness; no lightheadedness; no chest pain; no shortness of breath; no palpitations; no edema; no calf muscle cramps; no blurred vision; no confusion; no headaches; no fatigue doing well overall relates that she states that the pred didnt help her rashstates derm has never seen her rash before triamcinolone givenstates she hurt her left shoulder using wheel [place] and now the rightstates bothers down in the deltoid muscles on both sides also having pain in her left foot has a noted turning in has seen podiatry in past Zachery Martino DO [address] [place], [phone], [facility] 08/15/2024 10:06:40 5 text/htm l Care Management - AsthmaReported bypatient.Severity:impro ving; does not interfere with daily activities; does not disturb sleep; does not cause nighttime awakening Associated Symptoms:no fever; no fatigue; no irritability; no cough; normal appetite; no change in productivityCare Management - HypertensionReported bypatient.Self Care:not under emotional stress Severity:symptoms are improving; does not interfere with daily activities Associated Symptoms:no dizziness; no lightheadedness; no chest pain; no shortness of breath; no palpitations; no edema; no calf muscle cramps; no blurred vision; no confusion; no headaches; no fatigue here for rechk and relates her bp was low at 100 systolic and was getting dizzy and woozy cut the pill in half and is feeling much better Zachery Martino DO [address] [place], [id number], [facility] 02/15/2025 09:17:41 5 text/htm l patient is evaluated via tele/video assessment per patient consent during current pandemic relates that she has been sick for about a week with a deep coughpain around her earusing albuterol and is not able to bring up anything Zachery Martino DO [address] [place], [address], [facility] 03/01/2025 13:30:04 5 text/htm l f/u asthma/acute asthma exacerbation the patient reports that she is getting pressure on the left side of her face and ear, the patient reports that she is also still having some breathing problems, chest tightnessthe patient is having labored breathing, fatigueO2 sat 96%, mild bump up in her BPthe patient has a constant dry cough the patient does get relief from cough syrup OTC (robitussin)the patient reports that she is having pain with the cough and pain in the bottom of the lungs the patient may have combination allergies vs bronchitis vs pna, very possible walking pna can't produce mucusconstant dry coughwill give cough syrup in the meantime ABDULAZIZ CERVANTES [address] [place], [address], [facility] 03/14/2025 11:40:07 OBGyn Episode No OBEpisode recorded.
--- OUTSIDE RECORDS SUMMARY | 2025-04-25 07:31 | XMS_ITS | Patient Health Record ---
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 Name Role Phone GUNNER KEIRA Primary Care Provider Malena Alejandro Unavailable [phone] Allergies Allergen (clinical drug ingredient) Drug/Non Drug Allergy documented on EMR Reaction Allergy Type Onset Date Status codeine CODEINE Nausea/Vomiting/ Diarrhea Drug Allergy Active Reason For Referral No Information Medications Medication SIG (Take, Route, Frequency, Duration) Notes Start Date End Date Status Spironolactone 25 MG 1 tablet Orally Active Olmesartan Medoxomil-HCTZ 40-25 MG 1/2 tablet Oral Once a day Active Aspir-81 Active Omeprazole 40 MG Oral; Duration: 90 Days Active Isosorbide Dinitrate 10 MG Oral; Duration: 90 Days Active Rosuvastatin Calcium 10 MG 1 tablet Oral ly Once a day; Duration: 30 day(s) Active Wixela Inhub 250-50 MCG/DOSE 1 puff Inha lation at night Active Montelukast Sodium 10MG 1 ORAL daily; Du ration: -3 Chele-MJ 07/26/2013 Active Social History Tobacco Use: Social History Observation Description Date Details (start date - stop date) Former Smoker NA - NA Sexual History Question Answer Notes Had sex in the past 12 months (vaginal, oral, or anal)? No AUDIT-C (Standard) Question Answer Notes Did you have a drink contain ing alcohol in the past year? Yes How often did you have a dri nk containing alcohol in the past year? 2 to 3 times a week (3 points) How many drinks did you have on a typical day when you were drinking in the past year? 1 or 2 drinks (0 point) How often did you have six o r more drinks on one occasion in the past year? Never (0 point) Points 3 Interpretation Positive Tobacco Control (Standard) Question Answer Notes Tobacco use: Former smoker How long has it been since you last smoked? Grea ter than 10 years Problems Problem Type SNOMED Code ICD Code Onset Dates Problem Status W/U Status Risk Notes Problem Postmenopausal atrophic vaginitis (10725164) Postmenopausal atrophic vaginitis (N95.2) Active confirmed Problem Malignant neoplasm of overlapping sites of left female breast (C50.812) Active confirmed Problem Malignant neoplasm of female breast (217209737) Malignant neoplasm of unspecified site of left female breast (C50.912) Active confirmed Problem Screening for malignant neoplasm of breast (860432994) Encounter for screening mammogram for malignant neoplasm of breast (Z12.31) Active confirmed Problem Personal history of primary malignant neoplasm of breast (979127582) Personal history of malignant neoplasm of breast (Z85.3) Active confirmed Problem Acute myocardial infarction (39536409) Acute myocardial infarction, unspecified (I21.9) Active confirmed Problem Malignant neoplasm of female breast (816056902) Malignant neoplasm of other specified sites of female breast (174.8) Active confirmed Major Problem Hypothyroidism (87510072) Unspecified hypothyroidism (244.9) Active confirmed Major Problem Hyperlipidemia (96197795) Other and unspecified hyperlipidemia (272.4) Active confirmed Major Problem Essential hypertension (59415105) Unspecified essential hypertension (401.9) Active confirmed Major Problem Asthma (disorder) (020873556) Asthma, unspecified, unspecified status (493.90) Active confirmed Major Problem Menopausal symptom (77642667) Symptomatic menopausal or female climacteric states (627.2) Active confirmed Major Problem Postmenopausal atrophic vaginitis (58586176) Postmenopausal atrophic vaginitis (627.3) Active confirmed Diag Problem Disorder of bone and articular cartilage (disorder) (323899033) Disorder of bone and cartilage, unspecified (733.90) Active confirmed Diag Problem Gynecological examination normal (439523436072631) Routine gynecological examination (V72.31) Active confirmed Major Problem Screening for malignant neoplasm of colon (652720927) Special screening for malignant neoplasms, colon (V76.51) Active confirmed Major Vital Signs Temperature 97.8 degrees Fahrenheit 02/27/2025 Blood pressure diastolic 62 mm Hg 02/27/2025 Height 62.75 in 02/27/2025 Blood pressure systolic 162 mm Hg 02/27/2025 Weight 154 lbs 02/27/2025 BMI 27.49 kg/m2 02/27/2025 Encounters Encounter Location Date Provider Diagnosis [address] [place] [address] 02/27/2025 Malena Gamaliel Encounter for screening mammogram for malignant neoplasm of breast Z12.31 ; Other specified disorders of bone density and structure, multiple sites M85.89 ; Postmenopausal atrophic vaginitis N95.2 and Encounter for gynecological examination (general) (routine) without abnormal findings Z01.419 Assessments Encounter Date Diagnosis (ICD Code) Assessment Notes Treatment Notes Treatment Clinical Notes Section Notes 02/27/2025 Encounter for screening mammogram for malignant neoplasm of breast (ICD-10 - Z12.31) REGULAR MAMMOGRAMS AND SBE'S WERE RECOMMENDED. 02/27/2025 Other specified disorders of bone density and structure, multiple sites (ICD-10 - M85.89) DISCUSSED HER LATEST BMD AND OSTEOPENIA AND ITS IMPACT ON HER HEALTH. ADEQUATE CALCIUM AND VIT D. WEIGHT BEARING EXERCISES. REPEAT BMD THIS YEAR. 02/27/2025 Postmenopausal atrophic vaginitis (ICD-10 - N95.2) DISCUSSED FINDINGS, DX AND TX OPTIONS. PAT IS ASYMPTOMATIC AND REFUSED TX OPTIONS. 02/27/2025 Encounter for gynecological examination (general) (routine) without abnormal findings (ICD-10 - Z01.419) NO MORE PAP TESTS. Plan Of Treatment Pending Test Test Name Order Date MAMMOGRAM, SCREENING 02/17/2022 MAMMOGRAM, SCREENING 02/18/2023 MAMMOGRAM, SCREENING 02/23/2024 MAMMOGRAM, SCREENING 02/27/2025 MAMMOGRAM, SCREENING 10/30/2015 BONE DENSITY 02/27/2025 BONE DENSITY 02/18/2023 BONE DENSITY 02/15/2021 MM Digital Mammo Screening 02/17/2022 MM Digital Mammo Screening 02/18/2023 MM Digital Mammo Screening 02/23/2024 MM Digital Mammo Screening 02/27/2025 PELVIC ULTRASOUND W/TRANSVAGINAL 021 PELVIC ULTRASOUND W/TRANSVAGINAL 019 Next Appt Details Provider Name:Malena west, 03/12/2026 10:00:00 AM, [address], [address], [place], [address], Insurance Providers Payer Name Payer Address Payer Phone Subscriber Number Group Number Insured Name Patient Relationship to Insured Coverage Start Date Coverage End Date [employer] [facility] [address] [place] [address] [id number] INDIRA CLINE Self - patient is the insured Medical (General) History Medical History History ICD Code Postmenopausal atrophic vaginitis N95.2 Disorder of bone density and structure, unspecified M85.9 Hyperlipidemia, unspecified E78.5 Hypothyroidism, unspecified E03.9 Unspecified asthma, uncomplicated J45.90 9 Essential (primary) hypertension I10 Menopausal and female climacteric states N95.1 Malignant neoplasm of overlapping sites of left female breast C50.812 COVID-19 U07.1 Acute myocardial infarction, unspecified I21.9 Other specified disorders of bone densit y and structure, multiple sites M85.89 Surgical History Surgery Date(Month/Year) Colonoscopy Left Lumpectomy Left Wrist [place] 11/07/19 [facility] 08/07/21 Hospitalization History Reason Date(Month/Year) COVID 19 10/12/20 See Surgical Hx 2 Vaginal Deliveries
[2025-04-25 13:51] LABS: MANUAL DIFF FLAG NO
[2025-04-25 14:02] LABS: Hematocrit 36.5 % (37.0-47.0); Hemoglobin 12.0 g/dl (12.0-16.0); Imm Gran Abs Auto 0.11 X10*3/uL (0.00-0.03); Imm Gran Pct Auto 1.2 % (0.0-0.4); Lymphocytes Absolute Auto 2.3 X10*3/uL (1.2-4.9); Mean Corpuscular HGB Conc 32.9 g/dl (31.0-35.0); Mean Corpuscular Hemoglobin 30.8 pg (27.0-33.0); Mean Corpuscular Volume 93.8 fL (80.0-98.0); NRBC Abs Auto 0.000 X10*3/uL (0.0-0.012); NRBC Pct Auto 0.0 /100WBC (0.0-0.2); Platelet Count 423 X10*3/uL (160-400); Red Blood Count 3.89 X10*6/uL (4.20-5.50); White Blood Count 9.1 X10*3/uL (4.8-10.8)
[2025-04-25 14:36] LABS: Alanine Aminotransferase 16 U/L (0-31); Albumin Level 4.2 g/dL (3.5-5.0); Alkaline Phosphatase 63 U/L (39-117); Anion Gap 12 (12-20); Aspartate Amino Transferase 19 U/L (5-31); Blood Urea Nitrogen 27 mg/dL (9-16); Calcium 9.4 mg/dL (8.4-10.2); Carbon Dioxide 27 mmol/L (22-29); Chloride 110 mmol/L (96-108); Cholesterol 155 mg/dL (<200); Estimated Glomerular Filt Rate > 60; HDL Cholesterol 65 mg/dL (>40); Potassium 4.4 mmol/L (3.3-5.1); Sodium 145 mmol/L (135-145); Total Protein 7.0 g/dL (6.5-8.0); Triglycerides 88 mg/dL (<150)
== END 2025-04-25 07:29 | disposition home or self-care (01) ==
LOC: HO.MANLDS 07:28
PROVIDERS: Visit Provider Internal Medicine
DX: I10 Essential (primary) hypertension (principal)
CPT/HCPCS: 36415; 80053; 80061; 85025